=== PATIENT | male | born 1945 | race Caucasian/White ===

== ENCOUNTER → 2017-10-11 07:50 | Outpatient (CLI) | payer MEDICARE, OTHER, SELFPAY ==
--- NOTE | 2017-10-11 09:22 | P.PCN_ITS ---
Cardiac Stress Test Report Referral & Results Date Patient Seen: 10/11/17 Time Patient Seen: 09:20 Requesting provider: Shubham Bishop Indication: Chest pain Rest ECG: Unremarkable Procedure Note: Today following both written and verbal informed consent the patient was exercised according to a standard Kuldeep protocol patient went for a total of 5:15 minutes achieving a maximum heart rate of 158 maximum systolic blood pressure of 204. This is approximately 7.0 METS. Exercise was terminated at this point because of heart rate and blood pressure targets having been met. Patient was also given Cardiolite through a previously started Hep-Lock IV by the nuclear plant instrument technician approximately 1 minute prior to the cessation of exercise. Impression: There are no clear ST-T segment changes with activity. Occasional PVC and PAC Functional aerobic impairment rated 20% on the sedentary scale Late recovery at 3+ minutes patient did developed nonspecific ST-T segment changes in the lateral leads without symptoms Await perfusion imaging for full details but no clear evidence of ischemia with limited exercise capacity as above. Please note: Actual ECG tracings can be found in the PACS system.
--- NOTE | 2017-10-12 16:20 | DI.NM.S_ITS ---
DATE OF SERVICE: 10/11/2017 PROCEDURE: Exercise perfusion study. INDICATIONS: Chest pain with underlying hypertension, gout, and family history of coronary artery disease. RADIOPHARMACEUTICAL: 25.1 mCi of technetium-99m Myoview IV was injected at stress, and 26.0 mCi of technetium-99m Myoview IV was injected at rest. CARDIAC STRESS: Patient underwent exercise Myoview perfusion study under the supervision of an attending staff. The patient walked on Kuldeep protocol for 5 minutes 15 seconds and achieved 107% of target heart rate. Initial blood pressure 150/94. Peak blood pressure 204/88. The patient achieved 107% of target heart rate. Baseline EKG revealed sinus rhythm. During stress, the patient had 0.5 mm to [address] depression in lead V4 to V6. Nonspecific T-wave changes seen as well. No significant sustained arrhythmias seen. Occasional PVCs. No obvious chest pain. RAW DATA: There was increased subdiaphragmatic activity. The patient's weight is 270 pounds. GATED STUDY: Resting LV ejection fraction 61% and stress LV ejection fraction 71%. I don't see any obvious wall motion abnormalities. Resting end-diastolic volume 129 mL. No transient ischemic dilatation. TID ratio 0.80, which is within normal limits. Lung/heart ratio is 0.26, which is within normal limits. MYOCARDIAL PERFUSION SCAN: Stress supine, resting supine, and stress prone images were compared to each other. Stress and resting supine images revealed small- to moderate-sized mildly decreased perfusion of inferior wall and inferoapex which resolved during prone images, suggestive of diaphragmatic tissue attenuation artifact. CONCLUSION: I would call this study likely a normal myocardial perfusion study with evidence of diaphragmatic tissue attenuation artifact which resolved during prone images. There was a hypertensive blood pressure response. The patient achieved 7 METs of workload. Functional aerobic impairment positive-20% on sedentary scale. Overall, LV function is preserved. As far as perfusion scan is concerned, this is a low risk myocardial perfusion scan. Clinical correlation is recommended. Brandon Ramirez - SHWETA/glo/tyler doc#: [id number]/job#: [id number] dd: 10/12/2017 13:05:00 dt: 10/12/2017 14:45:00 DICTATING MD/COPIES TO: Maxx Bemrudez MD COPIES MNE: DANTE
== END ==
PROVIDERS: Family Provider Family Medicine; PCP Family Medicine; Visit Provider Family Medicine
DX: R07.9 Chest pain, unspecified (principal); I10 Essential (primary) hypertension
CPT/HCPCS: 78452; 93016; 93017; 93018; A9502

== ENCOUNTER → 2020-06-01 13:14 | Outpatient (CLI) | payer MEDICARE, OTHER, SELFPAY ==
[2020-06-01 16:22] LABS: COVID19 -Nasal RAPID Negative (Negative)
== END ==
PROVIDERS: Visit Provider Physician Assistant
DX: Z01.812 Encounter for preprocedural laboratory examination (principal); Z20.822 Contact with and (suspected) exposure to COVID-19
CPT/HCPCS: 87635; C9803

== ENCOUNTER → 2020-06-03 10:16 | Outpatient (CLI) | payer MEDICARE, OTHER, SELFPAY ==
--- NOTE | 2020-06-03 | DI.NM.S_ITS ---
PROCEDURE: NM DAVID PERF SPECT REST & STR Rest and exercise myocardial perfusion SPECT with gated imaging and ejection fraction RADIOPHARMACEUTICAL: 24.1 mCi Tc-99m sestamibi IV at rest and 27.5 mCi Tc-99m sestamibi IV at peak exercise. A two day-protocol was performed. INDICATIONS: Chest pain, unspecified TECHNIQUE: Radiopharmaceutical was injected at peak stress test, and also at rest. SPECT images were obtained. SPECT myocardial perfusion images were displayed in short axis, horizontal long axis, and vertical long axis views. Gated images were reviewed using [employer] software. COMPARISON: None. CARDIAC STRESS: A standard Kuldeep treadmill exercise tolerance test was performed by the patient under the supervision of an attending staff. The patient exercised for 4 minutes and 49 seconds; functional aerobic impairment (ROLAND) is +25%. Hemodynamic data: There is normal heart rate response to exercise stress. Mildly hypertensive response to exercise (resting BP 142/82mmHg, max BP 220/100mmHg). Patient achieved 93% of maximum predicted heart rate at peak exercise. Symptoms: Patient denied chest pain during exercise. EKG: No diagnostic EKG changes of ischemia; occasional PACs present. FINDINGS: Raw data: There is good myocardial labeling by radiotracer. No significant motion artifacts. Ulqi-lx-bhmgw ratio is 0.40 (normal is less than 0.38 for sestamibi tracer, and less than 0.50 for thallium tracer). Left ventricle function: Gated images demonstrate normal left ventricle wall thickening. No segmental wall motion abnormality. No transient ischemic dilation; TID is 0.83 (normal less than 1.3). The left ventricle resting end-diastolic volume is 120 mL. Left ventricle stress ejection fraction is 66%; normal values are above 45%. Myocardial perfusion: There is a moderately intense fixed defect in the inferior wall that improves significantly with prone imaging, suggesting diaphragmatic attenuation artifact but old non-transmural infarct can not be definitively excluded. IMPRESSION: Low risk, probably normal treadmill nuclear stress test 1) No perfusion evidence of ischemia. There is a moderately intense fixed defect in the inferior wall that improves significantly with prone imaging, suggesting diaphragmatic attenuation artifact but old non-transmural infarct can not be definitively excluded. 2) Normal left ventricular size, wall motion, and systolic function (EF post stress 66%). 3) No ECG evidence of ischemia. 4) No angina during the study. 5) Reduced exercise tolerance (7.0 METs, ROLAND +25%). Target heart rate achieved. 6) Mildly hypertensive response to exercise (resting BP 142/82mmHg, max BP 220/100mmHg). 7) Compared to the nuclear stress test done 10/11/2017, the inferior wall defect doesn't complete resolve with prone imaging on the current study. Dictated by: Brit Ocampo MD on 06/04/2020 at 12:58 Approved by: Brit Ocampo MD on 06/04/2020 at 13:03
== END ==
PROVIDERS: PCP Internal Medicine; Referring Provider Internal Medicine Cardiovascular Disease; Visit Provider Internal Medicine Cardiovascular Disease
DX: R07.89 Other chest pain (principal); R06.02 Shortness of breath
CPT/HCPCS: 78452; 93017; A9502

== ENCOUNTER 2020-08-20 11:45 | Emergency (ER) | payer MEDICARE, OTHER, SELFPAY ==
[2020-08-20] VITALS (14 sets, daily range): BP systolic 117–151; BP diastolic 73–96; PULSE 60–116; RESP 12–34; TEMP 36.6; O2SAT 97–100; BMI 32.8
--- NOTE | 2020-08-20 12:13 | DI.RAD.S_ITS ---
PROCEDURE: XR CHEST 1V INDICATIONS: chest pain TECHNIQUE: One view of the chest was acquired. COMPARISON: [facility], , CHEST 2 VIEW, 03/18/2017, 12:18. FINDINGS: Surgical changes and devices: None. Lungs and pleura: Lungs are clear. No pleural effusions or pneumothorax. Mediastinum: Mediastinal contours appear normal. Heart size is normal. Bones and chest wall: No suspicious bony lesions. Overlying soft tissues appear unremarkable. IMPRESSION: No evidence acute pulmonary process. Dictated by: Aniket Vergara M.D. on 08/20/2020 at 12:40 Approved by: Aniket Vergara M.D. on 08/20/2020 at 12:44
[2020-08-20 12:22] LABS: Add Manual Diff / Slide Review NO; Basophils Absolute Auto 100 /uL (0-100); Basophils Percent Auto 1.4 % (0-2); Eosinophils Absolute Auto 200 /uL (0-450); Eosinophils Percent Auto 3.7 % (2-4); Hematocrit 46.2 % (41-53); Hemoglobin 15.8 g/dL (13.5-17.5); Lymphocytes Absolute Auto 1600 /uL (1100-4500); Mean Corpuscular HGB Conc 34.1 % (30-36); Mean Corpuscular Hemoglobin 31.9 PG (26-34); Mean Corpuscular Volume 93.4 fL (80-100); Monocytes Absolute Auto 500 /uL (0-900); Neutrophils Absolute Auto 3900 /uL (1500-7000); Neutrophils Percent Auto 60.9 % (50-75); Platelet Count 234 X10^3/uL (150-400); Red Blood Cell Count 4.95 X10^6/uL (4.5-5.9); Red Cell Distribution Width 13.5 % (11.6-14.8); White Blood Cell Count 6.3 X10^3/uL (4.5-11.0)
[2020-08-20 12:26] LABS: PTT Partial Thromboplastin Tim 35 SECONDS (26.4-36.2)
[2020-08-20 12:27] LABS: Alanine Aminotransferase 45 IU/L (<50); Albumin 4.5 g/dL (3.5-5.0); Albumin Globulin Ratio 1.6 (1.0-2.8); Alkaline Phosphatase 93 U/L (38-126); Aspartate Aminotransferase 31 IU/L (17-59); BUN Creatinine Ratio 19.8 (6-22); Bilirubin Total 0.5 mg/dL (0.2-1.3); Blood Urea Nitrogen 16 mg/dL (9-20); Calcium 9.8 mg/dL (8.4-10.2); Carbon Dioxide 29 mmol/L (22-32); Chloride 104 mmol/L (98-107); Creatine Kinase 36 U/L (55-170); Estimated Glomerular Filt Rate > 60.0 mL/min (>60); Globulin 2.9 g/dL (1.7-4.1); Glucose 136 mg/dL (80-110); HEMOLYSIS < 15 (0-50); Lipase 62 U/L (23-300); Potassium 4.1 mmol/L (3.4-5.1); Sodium 141 mmol/L (137-145); Total Protein 7.4 g/dL (6.3-8.2)
[2020-08-20 12:38] LABS: Troponin I < 0.012 ng/mL (0.01-0.034)
--- NOTE | 2020-08-20 12:42 | ED.ARRPALP ---
HPI - Arrhythmia/Palpitations General Chief Complaint: Arrhythmia/Palpitations Stated Complaint: AFIB, REFERRED BY TEJAL Time Seen by Provider: 08/20/20 11:53 Source: patient Mode of arrival: Ambulatory Limitations: no limitations History of Present Illness HPI narrative: The patient is a 75-year-old male with history of diabetes hypertension paroxysmal atrial fibrillation presenting today with atrial fibrillation. He said it started at 2:00 a.m. this morning is woken from his sleepy felt fluttering in his chest. No dizziness lightheadedness chest pain or shortness of breath. This happened to him 2 other times once in 1989 and once in 1991 1 was related to thyroid medication the other 1 was related to of cold sherbert. complaint: heart racing and irregular heart beat Related Data Home Medications Medication Instructions Recorded Confirmed levothyroxine [Synthroid] 112 mcg PO QAM #0 09/07/17 Previous Rx's Medication Instructions Recorded atenolol 50 mg PO QDAY #90 tab 09/07/17 metoprolol succinate 100 mg PO QDAY #90 tab 09/07/17 varicella-zoster gE-AS01B (PF) 0.5 ml IM X1 #1 ea 09/07/17 [Shingrix (PF)] apixaban [Eliquis] 5 mg PO BID #60 tab 08/20/20 Allergies Allergy/AdvReac Type Severity Reaction Status Date / Time No Known Drug Allergies Allergy Verified 08/20/20 11:55 Review of Systems Review of Systems Narrative: GENERAL: Denies chills, fatigue, malaise, fever, sweats, travel HEENT: Denies sinus pain, ear pain, sore throat, difficulty swallowing, neck pain RESPIRATORY: Denies dyspnea, cough, wheezing, hemoptysis, sputum. CARDIOVASCULAR: See HPI GASTROINTESTINAL: Denies nausea, vomiting, abdominal pain, diarrhea, constipation, melena. : Denies dysuria, frequency, incontinence, hematuria, urinary retention, flank pain. MUSCULOSKELETAL: Denies weakness, joint pain, or bony pain SKIN: No rash, no erythema, no pruritus NEUROLOGIC: Denies weakness, dizziness, headache, numbness, change in speech, confusion PSYCHIATRIC: No concerning psychosocial issues. 12 point review of systems is negative except for those stated above and HPI Patient History Medical History Adenomatous polyp of colon Diabetes Family history of abdominal aortic aneurysm (AAA) (08/06/14) Gout Hyperlipidemia Hypertension Hypothyroidism Social History Smoking Status: Unknown if ever smoked Smoking Status: Unknown if ever smoked alcohol intake frequency: holidays/special occasions only Substance Use Type: does not use Exam Initial Vital Signs Initial Vital Signs: Vital Signs Temperature 97.9 F 08/20/20 11:48 Pulse Rate 99 H 08/20/20 11:48 Respiratory Rate 16 08/20/20 11:48 Blood Pressure 142/96 H 08/20/20 11:48 Pulse Oximetry 99 08/20/20 11:48 GENERAL: Alert pleasant 75-year-old male and in [no acute] distress. HEENT: Head atraumatic,EOMI, pupils reactive, face symmetric, [moist] mucous membranes CARDIOVASCULAR: Irregularly irregular RESPIRATORY: Breath sounds equal bilaterally, no wheezes rales or rhonchi. ABDOMEN: Soft, nontender. Normoactive bowel sounds all 4 quadrants. No guarding or rebound. EXTREMITIES: Normal range of motion, no clubbing or edema. Neurovascularly intact NEUROLOGICAL: Alert and oriented x4.Normal gait and speech. Cranial nerves II through XII grossly intact. SKIN: Warm, dry, no laceration, no petechiae, no rashes or lesions. Procedures Cardioversion Consent Signed: Yes Stability: Stable Number of attempts (shocks): 1 Joules used: 150 Cardiac rhythm post-cardioversion: Sinus rhythm Procedural Sedation Consent signed: Yes Time out performed: Yes Indication: cardioversion ASA Class: III Mallampati Airway Classification: Class II Preparation: supplemental O2 applied and suction/airway equipment at bedside Intraservice time/total sedation time (min): 12 ED Sedation Level: Moderate (Concious) Patient Tolerated Procedure: Well Complications: hypoventilation Interventions: Airway repositioned and Assist by BVM Course Orders Ordered: ED Orders 08/20/20 11:55 Complete Blood Count AUTO DIFF Stat Comprehensive Metabolic Panel Stat Lipase Stat Magnesium Stat Partial Thromboplastin Time Stat Prothrombin Time INR Stat Troponin & CK Cardiac Panel Stat 08/20/20 12:13 XR chest 1V Stat Discontinued Medications Propofol (Propofol 200 Mg/20 Ml Vial) 120 mg 1 mg/kg (120 mg) IV NOW ONE Stop: 08/20/20 12:58 Last Admin: 08/20/20 13:53 Dose: 100 mg Documented by: ANABEL Vital Signs Vital signs: Vital Signs - 8 hr 08/20/20 11:48 08/20/20 11:53 08/20/20 11:54 Temperature 97.9 F Pulse Rate 99 H 103 H 106 H Respiratory Rate 16 21 14 Blood Pressure 142/96 H 142/96 H Pulse Oximetry 99 100 100 08/20/20 12:00 08/20/20 12:30 08/20/20 13:00 Temperature Pulse Rate 111 H 110 H 116 H Respiratory Rate 12 13 16 Blood Pressure 141/94 H 142/73 H 135/80 Pulse Oximetry 99 99 99 08/20/20 13:30 08/20/20 13:45 08/20/20 13:52 Temperature Pulse Rate 111 H 92 H 111 H Respiratory Rate 16 18 Blood Pressure Pulse Oximetry 99 98 08/20/20 13:57 08/20/20 14:00 08/20/20 14:02 Temperature Pulse Rate 62 62 63 Respiratory Rate 21 34 H 20 Blood Pressure 151/73 H 134/78 133/79 Pulse Oximetry 100 98 98 08/20/20 14:08 08/20/20 14:21 Temperature Pulse Rate 61 60 Respiratory Rate 28 H 26 H Blood Pressure 131/80 117/73 Pulse Oximetry 97 98 MDM - Arrhythmia/Palpitations Lab Data Attestation: I reviewed the patient's lab results. Result diagrams: 08/20/20 11:55 08/20/20 11:55 Labs: Lab Results 08/20/20 08/20/20 08/20/20 Range/Units 11:55 11:55 11:55 WBC 6.3 (4.5-11.0) X10^3/uL RBC 4.95 (4.5-5.9) X10^6/uL Hgb 15.8 (13.5-17.5) g/dL Hct 46.2 (41-53) % MCV 93.4 (80-100) fL MCH 31.9 (26-34) PG MCHC 34.1 (30-36) % RDW 13.5 (11.6-14.8) % Plt Count 234 (150-400) X10^3/uL Neut % (Auto) 60.9 (50-75) % Lymph % (Auto) 26.0 (25-40) % Ventura % (Auto) 8.0 (3-14) % Eos % (Auto) 3.7 (2-4) % Baso % (Auto) 1.4 (0-2) % Neut # (Auto) 3900 (1762-4212) /uL Lymph # (Auto) 1600 (1466-3485) /uL Ventura # (Auto) 500 (0-900) /uL Eos # (Auto) 200 (0-450) /uL Baso # (Auto) 100 (0-100) /uL PT 11.0 (10.1-12.7) SECONDS INR 1.0 (0.9-1.3) APTT 35 (26.4-36.2) SECONDS Sodium 141 (137-145) mmol/L Potassium 4.1 (3.4-5.1) mmol/L Chloride 104 (98-107) mmol/L Carbon Dioxide 29 (22-32) mmol/L BUN 16 (9-20) mg/dL Creatinine 0.81 (0.66-1.25) mg/dL Estimated GFR > 60.0 (>60) mL/min BUN/Creatinine Ratio 19.8 (6-22) Glucose 136 H (80-110) mg/dL Calcium 9.8 (8.4-10.2) mg/dL Magnesium 2.0 (1.6-2.3) mg/dL Total Bilirubin 0.5 (0.2-1.3) mg/dL AST 31 (17-59) IU/L ALT 45 (<50) IU/L Alkaline Phosphatase 93 (38-126) U/L Total Creatine Kinase 36 L (55-170) U/L CK-MB (CK-2) TNP CK-MB (CK-2) Rel Index TNP Troponin I < 0.012 (0.01-0.034) ng/mL Total Protein 7.4 (6.3-8.2) g/dL Albumin 4.5 (3.5-5.0) g/dL Globulin 2.9 (1.7-4.1) g/dL Albumin/Globulin Ratio 1.6 (1.0-2.8) Lipase 62 (23-300) U/L Imaging Data Chest x-ray: Radiologist's Impresson: PROCEDURE: XR CHEST 1V INDICATIONS: chest pain TECHNIQUE: One view of the chest was acquired. COMPARISON: Merged With [facility], , CHEST 2 VIEW, 03/18/2017, 12:18. FINDINGS: Surgical changes and devices: None. Lungs and pleura: Lungs are clear. No pleural effusions or pneumothorax. Mediastinum: Mediastinal contours appear normal. Heart size is normal. Bones and chest wall: No suspicious bony lesions. Overlying soft tissues appear unremarkable. IMPRESSION: No evidence acute pulmonary process. Dictated by: Aniket Vergara M.D. on 08/20/2020 at 12:40 ECG Data Attestation: I personally reviewed and interpreted this ECG as follows: Prior ECG tracings: not available for review Interpretation: EKG 1. Atrial fibrillation whole rate [address] changes AFib EKG 2. Sinus bradycardia rate 58 p.r. interval 182 QRS 96 QTC4 00 MDM Narrative Medical decision making narrative: Patient tolerated procedure very well. Cardiology actually called prior to his rifle and recommended he be placed on Eliquis at discharge. I discussed with patient risks and benefits of Eliquis, at this time he is happy to take the prescription but is still hesitant to start the medication. Recommend he follow up with Dr. Bermudez Discharge Plan Departure Patient Disposition: Home Clinical Impression: Paroxysmal A-fib Instructions: DI for Atrial Fibrillation Activity Restrictions/Additional Instructions: *You have been diagnosed with paroxysmal atrial fibrillation *What to do: It is recommended that he follow up with Cardiology. Cardiology recommended that he start anticoagulation with Eliquis. Starting Eliquis can increase her risk of bleeding including GI bleeding and intracranial hemorrhage. *Continue to take medications as directed Eliquis 5 mg twice a day *Follow up with your primary care provider in 2-3 days *Return to ER if you should have increasing chest pain palpitations dizziness lightheadedness shortness of breath or any new, head injury, GI bleeding worsening or concerning symptoms Prescriptions: New Eliquis 5 mg tablet 5 mg PO BID Qty: 60 RF: 0 No Action levothyroxine [Synthroid] 112 MCG tablet 112 mcg PO QAM Qty: 0 RF: 0 metoprolol succinate 100 MG tablet extended release 24 hr 100 mg PO QDAY Qty: 90 RF: 4 atenolol 50 MG tablet 50 mg PO QDAY Qty: 90 RF: 3 varicella-zoster gE-AS01B (PF) [Shingrix (PF)] 50 MCG/0.5 ML suspension for reconstitution 0.5 ml IM X1 Qty: 1 RF: 0 Referrals: Rehana Conteh MD [Primary Care Provider] -
[2020-08-20] MEDS: propofoL 200 MG/20 ML VIAL 120 MG IV (13:53)
== END 2020-08-20 15:02 | disposition home or self-care (01) ==
PROVIDERS: Emergency Provider Emergency Medicine; PCP Internal Medicine
DX: I48.0 Paroxysmal atrial fibrillation (principal)
CPT/HCPCS: 36415; 71045; 80053; 82550; 83690; 83735; 84484; 85025; 85610; 85730; 92960; 93005; 93010; 99152; 99285; J2704

== ENCOUNTER 2020-10-06 01:15 | Emergency (ER) | payer MEDICARE, OTHER, SELFPAY ==
[2020-10-06] VITALS (46 sets, daily range): BP systolic 110–161; BP diastolic 58–90; PULSE 63–132; RESP 11–32; TEMP 36.6; O2SAT 93–99; BMI 37.3
--- NOTE | 2020-10-06 01:44 | ED_ITS ---
HPI - Arrhythmia/Palpitations General Chief Complaint: Arrhythmia/Palpitations Stated Complaint: states atrial fib, sent by md Time Seen by Provider: 10/06/20 01:25 Source: patient Mode of arrival: Ambulatory Limitations: no limitations History of Present Illness HPI narrative: The patient has paroxysmal atrial fib. He takes atenolol. He is not currently anticoagulated. He was seen here approximately a month ago and successfully cardioverted. Prior evaluation includes a cardiac stress pedis the past. The patient also underwent echo cardiogram, have no records but he describes the test as normal. He is under the care of Dr Bermudez. He was sitting quietly at home reading a book when he developed palpitations. He has no associated chest pain or dyspnea. Since the episode last month he has stopped all alcohol. He is prediabetic. Glucose monitor has been satisfactory. Blood pressure monitor has been satisfactory. He has hypothyroidism, his TSH is currently normal. Other than the current sequence of events, he has a remote history of a episode of AFib decades ago related to a Synthroid overdose.. Related Data Home Medications Medication Instructions Recorded Confirmed levothyroxine [Synthroid] 112 mcg PO QAM #0 09/07/17 Previous Rx's Medication Instructions Recorded atenolol 50 mg PO QDAY #90 tab 09/07/17 metoprolol succinate 100 mg PO QDAY #90 tab 09/07/17 varicella-zoster gE-AS01B (PF) 0.5 ml IM X1 #1 ea 09/07/17 [Shingrix (PF)] apixaban [Eliquis] 5 mg PO BID #60 tab 08/20/20 Allergies Allergy/AdvReac Type Severity Reaction Status Date / Time No Known Drug Allergies Allergy Verified 08/20/20 11:55 Review of Systems Constitutional Constitutional: Denies fever(s) Comments: No recent illness. ENT Ears, Nose, Mouth, and Throat: Denies dizziness Comments: No throat discomfort. Cardiovascular Cardiovascular: Denies chest pain, Reports rapid heart rate and Denies dyspnea Respiratory Respiratory: Denies dyspnea Gastrointestinal Comments: No abdominal discomfort. Musculoskeletal Comments: No edema. Neurologic Neurologic: Denies dizziness Patient History Medical History Adenomatous polyp of colon Diabetes Family history of abdominal aortic aneurysm (AAA) (08/06/14) Gout Hyperlipidemia Hypertension Hypothyroidism Social History Smoking Status: Unknown if ever smoked Smoking Status: Unknown if ever smoked alcohol intake frequency: 0-2 drinks per day Substance Use Type: does not use Exam Initial Vital Signs Initial Vital Signs: Vital Signs Temperature 97.8 F 10/06/20 01:20 Pulse Rate 129 H 10/06/20 01:20 Respiratory Rate 18 10/06/20 01:20 Blood Pressure 159/73 H 10/06/20 01:20 Pulse Oximetry 98 10/06/20 01:20 Const General: cooperative and well developed Nutritional Appearance: well nourished [facility] Head: normocephalic and atraumatic Nose: external nose normal Mouth: oral mucosae normal and moist mucous membranes Teeth and gingiva: dentition normal Throat: tonsils normal Neck Neck: No JVD Thyroid: thyroid normal Resp Auscultation: clear to auscultation bilaterally Cardio Rate: tachycardic (Irregular, irregular rhythm rate 120 to 140s.) Heart Sounds: S1 normal, S2 normal, no murmurs and no rubs GI Inspection: non-distended Palpation: soft, no hepatosplenomegaly and No tender Auscultation: normal bowel sounds Back/Spine/Pelvis Back: No CVA tenderness Skin General: no rashes or lesions noted Extrem General: no pedal edema Procedures Cardioversion Consent Signed: Yes Indication: AFib with RVR. Stability: Stable Cardiac rhythm post-cardioversion: Normal sinus rhythm Additional Comments: The patient is asymptomatic following cardioversion. It is noted that his sleep apnea. He required a brief of assistance with oxygen awaiting recovery from the propofol. Recovery was otherwise uneventful. Procedural Sedation Consent signed: Yes Time out performed: Yes Indication: cardioversion ASA Class: II Mallampati Airway Classification: Class II Preparation: cardiac surgeon applied, pulse oximeter, capnometry used, supplemental O2 applied and suction/airway equipment at bedside IV Propofol dose (mg): 120 Course Course Course Narrative: The patient underwent uneventful cardioversion from AFib to NSR. He currently takes beta-blockers. His pattern layout worker, Dr. Bermudez, contacted me prior to the patient's arrival. He suggested Eliquis and flecainide he had to the patient's treatment. The patient would consider Coumadin, not Eliquis. He intends to wait conversation with Dr. Bermudez before considering Flecainide. He is improved, and stable prior to discharge. Orders Ordered: ED Orders 10/06/20 01:27 EKG-12 Lead Routine 10/06/20 01:30 COVID19 -Nasal swab/Pre-Proc Stat 10/06/20 01:35 Basic Metabolic Panel Stat Complete Blood Count AUTO DIFF Stat Magnesium Stat Troponin & CK Cardiac Panel Stat 10/06/20 01:53 XR chest 1V Stat 10/06/20 04:17 EKG-12 Lead Stat Discontinued Medications Sodium Chloride (Normal Saline 0.9%) 1,000 mls @ 150 mls/hr IV CONT LEWIS Last Infusion: 10/06/20 05:48 Dose: 150 mls/hr Documented by: Infusion: 10/06/20 05:48 Dose: 150 mls/hr Documented by: Admin: 10/06/20 02:26 Dose: 150 mls/hr Documented by: CHAVA Sodium Chloride (Normal Saline 0.9%) 1,000 mls @ 150 mls/hr IV CONT LEWIS Last Admin: 10/06/20 05:48 Dose: Not Given Documented by: TRACEY Propofol (Propofol 200 Mg/20 Ml Vial) 200 mg IV NOW ONE Stop: 10/06/20 03:05 Last Admin: 10/06/20 04:17 Dose: 120 mg Documented by: TRACEY Vital Signs Vital signs: Vital Signs - 8 hr 10/06/20 01:20 10/06/20 01:26 10/06/20 01:29 Temperature 97.8 F Pulse Rate 129 H 114 H 125 H Respiratory Rate 18 17 Blood Pressure 159/73 H 159/73 H Blood Pressure [Right Arm] Pulse Oximetry 98 97 96 10/06/20 01:30 10/06/20 01:35 10/06/20 01:40 Temperature Pulse Rate 125 H 128 H 126 H Respiratory Rate 15 11 L 19 Blood Pressure 123/68 Blood Pressure [Right Arm] Pulse Oximetry 96 96 96 10/06/20 01:45 10/06/20 01:50 10/06/20 01:55 Temperature Pulse Rate 129 H 128 H 128 H Respiratory Rate 28 H 31 H 32 H Blood Pressure Blood Pressure [Right Arm] Pulse Oximetry 96 97 98 10/06/20 02:00 10/06/20 02:05 10/06/20 02:10 Temperature Pulse Rate 128 H 132 H 127 H Respiratory Rate 22 20 24 Blood Pressure 131/70 Blood Pressure [Right Arm] Pulse Oximetry 96 96 97 10/06/20 02:15 10/06/20 02:20 10/06/20 02:25 Temperature Pulse Rate 122 H 126 H 126 H Respiratory Rate 16 17 22 Blood Pressure Blood Pressure [Right Arm] Pulse Oximetry 95 95 93 10/06/20 02:30 10/06/20 02:35 10/06/20 02:40 Temperature Pulse Rate 125 H 125 H 121 H Respiratory Rate 15 20 16 Blood Pressure 142/71 H Blood Pressure [Right Arm] Pulse Oximetry 96 95 95 10/06/20 02:45 10/06/20 02:50 10/06/20 02:55 Temperature Pulse Rate 124 H 119 H 124 H Respiratory Rate 19 20 20 Blood Pressure Blood Pressure [Right Arm] Pulse Oximetry 94 94 95 10/06/20 03:00 10/06/20 03:05 10/06/20 03:10 Temperature Pulse Rate 118 H 124 H 113 H Respiratory Rate 21 18 20 Blood Pressure 125/67 Blood Pressure [Right Arm] Pulse Oximetry 93 94 94 10/06/20 03:15 10/06/20 03:20 10/06/20 03:25 Temperature Pulse Rate 122 H 122 H 121 H Respiratory Rate 26 H 21 15 Blood Pressure Blood Pressure [Right Arm] Pulse Oximetry 97 96 10/06/20 03:30 10/06/20 03:31 10/06/20 03:35 Temperature Pulse Rate 127 H 121 H 127 H Respiratory Rate 15 18 19 Blood Pressure 148/69 H Blood Pressure [Right Arm] Pulse Oximetry 10/06/20 03:40 10/06/20 03:45 10/06/20 03:50 Temperature Pulse Rate 123 H 114 H 121 H Respiratory Rate 14 17 11 L Blood Pressure Blood Pressure [Right Arm] Pulse Oximetry 10/06/20 03:55 10/06/20 04:00 10/06/20 04:04 Temperature Pulse Rate 114 H 115 H 74 Respiratory Rate 15 14 23 Blood Pressure 161/88 H Blood Pressure [Right Arm] 152/90 H Pulse Oximetry 97 99 10/06/20 04:05 10/06/20 04:10 10/06/20 04:15 Temperature Pulse Rate 118 H 74 73 Respiratory Rate 17 19 19 Blood Pressure 149/80 H 152/90 H 119/74 Blood Pressure [Right Arm] Pulse Oximetry 97 99 95 10/06/20 04:20 10/06/20 04:25 10/06/20 04:30 Temperature Pulse Rate 72 69 67 Respiratory Rate 16 18 Blood Pressure 120/79 112/60 110/58 L Blood Pressure [Right Arm] Pulse Oximetry 95 94 95 10/06/20 04:35 10/06/20 04:40 10/06/20 04:45 Temperature Pulse Rate 65 64 63 Respiratory Rate 17 17 17 Blood Pressure 114/60 114/62 112/59 L Blood Pressure [Right Arm] Pulse Oximetry 94 94 95 10/06/20 04:50 Temperature Pulse Rate 64 Respiratory Rate 18 Blood Pressure Blood Pressure [Right Arm] Pulse Oximetry 95 MDM - Arrhythmia/Palpitations Lab Data Result diagrams: 10/06/20 01:35 10/06/20 01:35 Labs: Lab Results 10/06/20 10/06/20 10/06/20 Range/Units 01:30 01:35 01:35 WBC 6.9 (4.5-11.0) X10^3/uL RBC 4.86 (4.5-5.9) X10^6/uL Hgb 15.1 (13.5-17.5) g/dL Hct 44.9 (41-53) % MCV 92.4 (80-100) fL MCH 31.0 (26-34) PG MCHC 33.5 (30-36) % RDW 13.4 (11.6-14.8) % Plt Count 225 (150-400) X10^3/uL Neut % (Auto) 59.8 (50-75) % Lymph % (Auto) 27.4 (25-40) % [place] % (Auto) 7.5 (3-14) % Eos % (Auto) 3.9 (2-4) % Baso % (Auto) 1.4 (0-2) % Neut # (Auto) 4100 (1600-3856) /uL Lymph # (Auto) 1900 (7794-9308) /uL [place] # (Auto) 500 (0-900) /uL Eos # (Auto) 300 (0-450) /uL Baso # (Auto) 100 (0-100) /uL Sodium 141 (137-145) mmol/L Potassium 3.8 (3.4-5.1) mmol/L Chloride 107 (98-107) mmol/L Carbon Dioxide 25 (22-32) mmol/L BUN 22 H (9-20) mg/dL Creatinine 0.85 (0.66-1.25) mg/dL Estimated GFR > 60.0 (>60) mL/min BUN/Creatinine Ratio 25.9 H (6-22) Glucose 157 H (80-110) mg/dL Calcium 9.4 (8.4-10.2) mg/dL Magnesium 2.0 (1.6-2.3) mg/dL Total Creatine Kinase 37 L (55-170) U/L CK-MB (CK-2) TNP CK-MB (CK-2) Rel Index TNP Troponin I < 0.012 (0.01-0.034) ng/mL SARS-CoV-2 (PCR) Negative (Negative) Imaging Data Chest x-ray: My Impression: Normal ECG Data Attestation: I personally reviewed and interpreted this ECG as follows: (AFib with RVR rate 126 beats per minute. Left axis deviation. Q-waves suggesting old inferior [place]. No acute ST T wave changes. EKG 2., status post cardioversion. Normal sinus rhythm with left axis deviation, no ectopy. No acute ST T wave changes.) Discharge Plan Departure Patient Disposition: Home Clinical Impression: Atrial fibrillation Qualifiers: Atrial fibrillation type: paroxysmal Qualified Code(s): I48.0 - Paroxysmal atrial fibrillation Instructions: DI for Atrial Fibrillation Activity Restrictions/Additional Instructions: Continue your current medications. Contact your pattern layout worker to discuss the use of Eliquis versus Coumadin, and discuss the use of Flecainide. Return to the ER as necessary. Prescriptions: No Action levothyroxine [Synthroid] 112 MCG tablet 112 mcg PO QAM Qty: 0 RF: 0 metoprolol succinate 100 MG tablet extended release 24 hr 100 mg PO QDAY Qty: 90 RF: 4 atenolol 50 MG tablet 50 mg PO QDAY Qty: 90 RF: 3 varicella-zoster gE-AS01B (PF) [Shingrix (PF)] 50 MCG/0.5 ML suspension for reconstitution 0.5 ml IM X1 Qty: 1 RF: 0 Eliquis 5 mg tablet 5 mg PO BID Qty: 60 RF: 0 Referrals: Rehana Conteh MD [Primary Care Provider] - Maxx Bermudez MD [Physician] -
[2020-10-06 01:53] LABS: COVID19 -Nasal RAPID Negative (Negative)
--- NOTE | 2020-10-06 01:53 | DI.RAD.S_ITS ---
PROCEDURE: XR CHEST 1V INDICATIONS: chest pain TECHNIQUE: One view of the chest was acquired. COMPARISON: [facility], CR, CHEST 2 VIEW, 03/18/2017, 12:18. [facility], CR, XR CHEST 1 VIEW, 05/13/2020, 11:15. [facility], CR, XR CHEST 1V, 08/20/2020, 12:19. FINDINGS: Surgical changes and devices: None. Lungs and pleura: Lungs are clear. No pleural effusions or pneumothorax. Mediastinum: Mediastinal contours appear normal. Heart size is normal. Atherosclerotic calcification of the aortic arch is noted. Bones and chest wall: No suspicious bony lesions. Age-appropriate bony degenerative changes are seen. Overlying soft tissues appear unremarkable. IMPRESSION: Portable chest study within normal limits for age. Note: No significant discrepancy from the preliminary report. Dictated by: Franki Mckeon M.D. on 10/06/2020 at 8:27 Approved by: Franki Mckeon M.D. on 10/06/2020 at 8:27
[2020-10-06 02:05] LABS: Add Manual Diff / Slide Review NO; Basophils Absolute Auto 100 /uL (0-100); Basophils Percent Auto 1.4 % (0-2); Eosinophils Absolute Auto 300 /uL (0-450); Eosinophils Percent Auto 3.9 % (2-4); Hematocrit 44.9 % (41-53); Hemoglobin 15.1 g/dL (13.5-17.5); Lymphocytes Absolute Auto 1900 /uL (1100-4500); Lymphocytes Percent Auto 27.4 % (25-40); Mean Corpuscular HGB Conc 33.5 % (30-36); Mean Corpuscular Volume 92.4 fL (80-100); Monocytes Absolute Auto 500 /uL (0-900); Monocytes Percent Auto 7.5 % (3-14); Neutrophils Absolute Auto 4100 /uL (1500-7000); Neutrophils Percent Auto 59.8 % (50-75); Platelet Count 225 X10^3/uL (150-400); Red Blood Cell Count 4.86 X10^6/uL (4.5-5.9); Red Cell Distribution Width 13.4 % (11.6-14.8); White Blood Cell Count 6.9 X10^3/uL (4.5-11.0)
[2020-10-06 02:10] LABS: BUN Creatinine Ratio 25.9 (6-22); Blood Urea Nitrogen 22 mg/dL (9-20); Calcium 9.4 mg/dL (8.4-10.2); Carbon Dioxide 25 mmol/L (22-32); Chloride 107 mmol/L (98-107); Creatine Kinase 37 U/L (55-170); Estimated Glomerular Filt Rate > 60.0 mL/min (>60); Glucose 157 mg/dL (80-110); HEMOLYSIS 21 (0-50); Potassium 3.8 mmol/L (3.4-5.1); Sodium 141 mmol/L (137-145)
[2020-10-06 02:21] LABS: Troponin I < 0.012 ng/mL (0.01-0.034)
[2020-10-06] MEDS: SODIUM CHLORIDE 0.9% 1,000 ML 150 ML IV (02:26)
[2020-10-06] MEDS: propofoL 200 MG/20 ML VIAL IV (04:17)
--- NOTE | 2020-10-06 04:18 | PC.NURSE ---
Pt is now alert and conversant. Dr Iniguez at bedside discussing plan of care. Pt in sinus rhythm after cardioversion.
== END 2020-10-06 05:45 | disposition home or self-care (01) ==
PROVIDERS: Emergency Provider Emergency Medicine; PCP Internal Medicine
DX: I48.0 Paroxysmal atrial fibrillation (principal); Z20.822 Contact with and (suspected) exposure to COVID-19
CPT/HCPCS: 36415; 71045; 80048; 82550; 83735; 84484; 85025; 87635; 92960; 93005; 93010; 96360; 96361; 99285; 99291; C9803; J2704

== ENCOUNTER 2022-03-06 08:38 | Emergency (ER) | payer MEDICARE, OTHER, SELFPAY ==
[2022-03-06] VITALS (10 sets, daily range): BP systolic 141–192; BP diastolic 80–108; PULSE 70–88; RESP 18; TEMP 36.8; O2SAT 97–99; BMI 34.8
--- NOTE | 2022-03-06 09:04 | ED_ITS ---
HPI - Back Pain/Injury General Chief Complaint: Back Pain/Injury Stated Complaint: excruciating right flank pain Time Seen by Provider: 03/06/22 08:50 Source: patient Mode of arrival: Ambulatory History of Present Illness HPI Narrative: 76-year-old male who is here for evaluation of right-sided flank pain. He states that approximately 1 week ago he had a fairly sudden onset of right-sided flank discomfort that got worse with touching his lower ribs on the right. There was no specific trauma. The pain has been consistent for the past week. There has been no rash over the area. This morning the discomfort seems to worsen and now encompasses his right side of his abdomen. He denies any urinary symptoms. No change in bowel habits. No nausea or vomiting. No fevers. Has never had a kidney stone. Has never had gallbladder issues. No prior abdominal surgeries. Related Data Home Medications Medication Instructions Recorded Confirmed levothyroxine 112 mcg tablet 112 mcg PO QAM ##0 09/07/17 (Synthroid) Previous Rx's Medication Instructions Recorded atenolol 50 mg tablet 50 mg PO QDAY #90 tabs 09/07/17 metoprolol succinate 100 mg 100 mg PO QDAY #90 tabs 09/07/17 tablet,extended release 24 hr varicella-zoster glycoE vacc-AS01B 0.5 ml IM X1 #1 ea 09/07/17 adj(PF) 50 mcg/0.5 mL IM susp, kit (Shingrix (PF)) apixaban 5 mg tablet (Eliquis) 5 mg PO BID #60 tabs 08/20/20 Allergies Allergy/AdvReac Type Severity Reaction Status Date / Time No Known Drug Allergies Allergy Verified 08/20/20 11:55 Review of Systems Constitutional Constitutional: Reports system reviewed and no additional complaints, except as documented Gastrointestinal Gastrointestinal: Reports system reviewed and no additional complaints, except as documented Genitourinary Genitourinary: Reports system reviewed and no additional complaints, except as documented Musculoskeletal Musculoskeletal: Reports system reviewed and no additional complaints, except as documented Integumentary/Breasts Skin/Breast: Reports system reviewed and no additional complaints, except as documented Hematologic/Lymphatic On Anticoagulants: No Patient History Medical History Adenomatous polyp of colon Diabetes Family history of abdominal aortic aneurysm (AAA) (08/06/14) Gout Hyperlipidemia Hypertension Hypothyroidism Social History Smoking Status: Unknown if ever smoked Smoking Status: Unknown if ever smoked alcohol intake frequency: 0-2 drinks per day Substance Use Type: does not use Exam Initial Vital Signs Initial Vital Signs: Vital Signs Temperature 98.3 F 03/06/22 08:40 Pulse Rate 88 03/06/22 08:40 Respiratory Rate 18 03/06/22 08:40 Blood Pressure 190/88 H 03/06/22 08:40 Pulse Oximetry 97 03/06/22 08:40 Oxygen Delivery Method 03/06/22 08:40 Resp Effort & Inspection: normal respiratory effort Auscultation: clear to auscultation bilaterally Cardio Rate: regular rate Rhythm: regular rhythm GI Inspection: normal to inspection Palpation: soft, No firm, No guarding and No mass Back/Spine/Pelvis Other: Some discomfort over the right CVA in the right lower ribs. No crepitus. Skin General: no rashes or lesions noted Neuro General: patient alert, patient awake and moves all extremities Extrem General: normal to inspection and capillary refill normal Psych Appearance: grossly normal and well kempt Course Orders Ordered: ED Orders 03/06/22 08:49 Complete Blood Count AUTO DIFF Stat Comprehensive Metabolic Panel Stat Lactate (Lactic Acid) Stat Lipase Stat 03/06/22 09:05 CT abdomen pelvis w con Stat 03/06/22 11:14 US abdomen limited Stat Discontinued Medications Sodium Chloride (Normal Saline 0.9%) 1,000 mls @ 1,000 mls/hr IV BOLUS ONE Stop: 03/06/22 10:04 Last Infusion: 03/06/22 11:00 Dose: 0 mls/hr Documented By: Admin: 03/06/22 09:19 Dose: 1,000 mls/hr Documented By: CADENCE Vital Signs Vital signs: Vital Signs - 8 hr 03/06/22 08:40 03/06/22 09:00 03/06/22 09:00 Temperature 98.3 F Pulse Rate 88 86 Respiratory Rate 18 Blood Pressure 190/88 H 192/108 H Pulse Oximetry 97 98 Oxygen Delivery Method Room Air 03/06/22 09:30 03/06/22 09:30 03/06/22 10:00 Temperature Pulse Rate 78 78 Respiratory Rate Blood Pressure 156/85 H Pulse Oximetry 97 97 Oxygen Delivery Method 03/06/22 10:01 03/06/22 10:01 03/06/22 10:30 Temperature Pulse Rate 78 Respiratory Rate Blood Pressure 187/90 H 167/93 H Pulse Oximetry 97 Oxygen Delivery Method 03/06/22 10:30 03/06/22 11:00 03/06/22 11:00 Temperature Pulse Rate 73 73 Respiratory Rate Blood Pressure 159/90 H Pulse Oximetry 98 97 Oxygen Delivery Method 03/06/22 11:30 03/06/22 11:30 03/06/22 11:53 Temperature Pulse Rate 70 71 Respiratory Rate Blood Pressure 150/80 H Pulse Oximetry 97 99 Oxygen Delivery Method Room Air 03/06/22 12:00 Temperature Pulse Rate Respiratory Rate Blood Pressure 141/86 H Pulse Oximetry Oxygen Delivery Method MDM - Back Pain/Injury Lab Data Attestation: I reviewed the patient's lab results. Result diagrams: 03/06/22 08:49 03/06/22 08:49 Labs: Lab Results 03/06/22 03/06/22 03/06/22 Range/Units 08:49 08:49 08:49 WBC 6.4 (4.5-11.0) X10^3/uL RBC 5.19 (4.5-5.9) X10^6/uL Hgb 15.6 (13.5-17.5) g/dL Hct 46.8 (41-53) % MCV 90.1 (80-100) fL MCH 30.1 (26-34) PG MCHC 33.4 (30-36) % RDW 13.8 (11.6-14.8) % Plt Count 207 (150-400) X10^3/uL Neut % (Auto) 60.7 (50-75) % Lymph % (Auto) 26.6 (25-40) % [place] % (Auto) 6.7 (3-14) % Eos % (Auto) 4.6 H (2-4) % Baso % (Auto) 1.4 (0-2) % Neut # (Auto) 3900 (6177-0849) /uL Lymph # (Auto) 1700 (0594-4877) /uL [place] # (Auto) 400 (0-900) /uL Eos # (Auto) 300 (0-450) /uL Baso # (Auto) 100 (0-100) /uL Sodium 141 (137-145) mmol/L Potassium 4.2 (3.4-5.1) mmol/L Chloride 104 (98-107) mmol/L Carbon Dioxide 28 (22-32) mmol/L BUN 13 (9-20) mg/dL Creatinine 0.73 (0.66-1.25) mg/dL Estimated GFR > 60 (>60) mL/min BUN/Creatinine Ratio 17.8 (6-22) Glucose 146 H (80-110) mg/dL Lactate 2.0 (0.7-2.1) mmol/L Calcium 9.4 (8.4-10.2) mg/dL Total Bilirubin 0.6 (0.2-1.3) mg/dL AST 26 (17-59) IU/L ALT 31 (<50) IU/L Alkaline Phosphatase 124 (38-126) U/L Total Protein 7.7 (6.3-8.2) g/dL Albumin 4.5 (3.5-5.0) g/dL Globulin 3.2 (1.7-4.1) g/dL Albumin/Globulin Ratio 1.4 (1.0-2.8) Lipase 97 (23-300) U/L Urine Dip Bedside Urine Glucose Negative Bedside Urine Bilirubin - Negative Bedside Urine Ketone - Negative Urine Specific [place] 1.010 Bedside Urine Occult Blood - Negative Bedside Urine pH 7.0 Bedside Urine Protein - Negative Bedside Urine Urobilinogen - Negative Bedside Urine Nitrite - Negative Bedside Urine Leukocytes - Negative Esterase Imaging Data CT scan - abdomen/pelvis: Radiologist's Impression: [address] [address] [address] Scan Report Signed Patient: Brandon Ramirez MR#: [id number] : 1945 Acct:[id number] Age/Sex: 76 / M Date of Service: 03/06/22 Loc: ED Accession Number: [id number] ?? Procedure: CT abdomen pelvis w con Ordering Provider: Lokesh Leonard D.O. PROCEDURE:? CT ABDOMEN PELVIS W CON ? INDICATIONS:? Right-sided flank pain ? TECHNIQUE:? After the administration of oral and IV contrast, axial sections were acquired from the lung bases to the pubic symphysis.? Coronal and sagittal reformats were performed.? For radiation dose reduction, the following was used:? automated exposure control, adjustment of mA and/or kV according to patient size. ? COMPARISON:? None. ? FINDINGS:? Image quality:? Excellent.? ? Lung bases:? Unremarkable. Small hiatal hernia. Heart:? No significant findings. ? ? ABDOMEN: Liver:? Normal size.? Mild hepatic steatosis.? ? Gallbladder:? Unremarkable.? ? Biliary ducts:? Unremarkable.? ? Pancreas:? Unremarkable.? ? Spleen:? Unremarkable.? ? Adrenal Glands:? Unremarkable.? ? Kidneys and Ureters:? Normal size and symmetrical enhancement.? Mild bilateral perinephric stranding.? A couple of 1 cm cortical cyst in the superior pole of the left kidney.? ? ? Stomach and Bowel:? Stomach, small bowel loops, and colon are normal in size.? Appendix is not identified.? No secondary signs for acute appendicitis.? Moderate stool in colon. Peritoneum:? No abnormal intraperitoneal fluid.? No free air.? ? Ventral Wall: ? There is a small fat containing umbilical hernia.? Abdominal Nodes:? No retroperitoneal or mesenteric adenopathy by size criteria.? Vessels:? Aorta and inferior vena cava are normal in size.? ? PELVIS: Pelvic Organs:? Unremarkable.? Prostate is enlarged. ? Bladder:? Unremarkable.? ? Pelvic Nodes: No enlarged lymph nodes.? Miscellaneous:? There is a small fat containing right inguinal hernia. ? ? ? Bones:? Grade 1 anterolisthesis of L4 on L5.? Moderate degenerative disc and facet disease in the lower thoracic and lumbar spine.? IMPRESSION:? ? 1. No acute abnormalities in abdomen or pelvis. 2. Mild hepatic steatosis. 3. Small hiatal hernia. 4. A small fat containing umbilical hernia. 5. Moderate amount of stool in colon.? ? ? Dictated by: Alyce Shaver M.D. on 03/06/2022 at 10:33 ? ? Approved by: Alyce Shaver M.D. on 03/06/2022 at 10:40? US - abdomen: Radiologist's Impression: [address] [address] Ultrasound Report Signed Patient: Brandon Ramirez MR#: [id number] : 1945 Acct:[id number] Age/Sex: 76 / M Date of Service: 03/06/22 Loc: ED Accession Number: [id number] ?? Procedure: US abdomen limited Ordering Provider: Lokesh Leonard D.O. PROCEDURE:? US ABDOMEN LIMITED ? INDICATIONS:? RUQ pain eval for GB pathology ? TECHNIQUE:? Real-time scanning was performed of the abdominal and retroperitoneal organs, with image documentation.? ? COMPARISON:? [facility], CT, CT ABDOMEN PELVIS W CON, 03/06/2022, 9:56. ? FINDINGS:? ? Liver:? Liver is normal in size and demonstrates increased echotexture.? Gallbladder:? No gallstones. No gallbladder wall thickening, pericholecystic fluid or sonographic Guzman's sign.? Biliary ducts:? Intrahepatic bile ducts are non-dilated.? Extrahepatic bile duct caliber measures 4.7 mm.? Normal is 6-7 mm or less in diameter, or 10 mm or less post-cholecystectomy.? Pancreas:? Obscured.? Miscellaneous:? No free abdominal fluid.? ? ? IMPRESSION:? ? 1. Normal ultrasound appearance of gallbladder.? No gallstones or findings to suggest acute cholecystitis. 2.? Diffusely increased hepatic echotexture. This finding is most likely secondary to hepatic fatty infiltration although other hepatocellular disease may have a similar appearance. Recommend clinical correlation. 3. Pancreas obscured by overlying bowel gas. ? ? ? Dictated by: Alyce Shaver M.D. on 03/06/2022 at 12:24 ? ? Approved by: Alyce Shaver M.D. on 03/06/2022 at 12:26? MDM Narrative Medical decision making narrative: Labs CT scan ultrasound urinalysis are all unremarkable. Unfortunately does not give a exact diagnosis but is very reassuring. There is no skin changes over the area concerning for zoster. Patient states that his symptoms have actually improved since being here in the ER. No medications administered. Will discharge patient home with strict return precautions. He expressed understanding and agreement. Discharge Plan Departure Patient Disposition: Home Clinical Impression: Acute right flank pain Instructions: DI for Flank Pain Activity Restrictions/Additional Instructions: Your workup here in the emergency department is very reassuring. The CT scans and ultrasounds and labs are all unremarkable. Recommend that you continue to take all of her medications as directed. Return to the emergency department for any new or worsening symptoms. Prescriptions: No Action levothyroxine [Synthroid] 112 MCG tablet 112 mcg PO QAM Qty: 0 metoprolol succinate 100 MG tablet extended release 24 hr 100 mg PO QDAY Qty: 90 4RF atenolol 50 MG tablet 50 mg PO QDAY Qty: 90 3RF varicella-zoster gE-AS01B (PF) [Shingrix (PF)] 50 MCG/0.5 ML suspension for reconstitution 0.5 ml IM X1 Qty: 1 0RF Eliquis 5 mg tablet 5 mg PO BID Qty: 60 0RF Referrals: Rehana Conteh MD [Primary Care Provider] -
--- NOTE | 2022-03-06 09:05 | DI.CT.S_ITS ---
PROCEDURE: CT ABDOMEN PELVIS W CON INDICATIONS: Right-sided flank pain TECHNIQUE: After the administration of oral and IV contrast, axial sections were acquired from the lung bases to the pubic symphysis. Coronal and sagittal reformats were performed. For radiation dose reduction, the following was used: automated exposure control, adjustment of mA and/or kV according to patient size. COMPARISON: None. FINDINGS: Image quality: Excellent. Lung bases: Unremarkable. Small hiatal hernia. Heart: No significant findings. ABDOMEN: Liver: Normal size. Mild hepatic steatosis. Gallbladder: Unremarkable. Biliary ducts: Unremarkable. Pancreas: Unremarkable. Spleen: Unremarkable. Adrenal Glands: Unremarkable. Kidneys and Ureters: Normal size and symmetrical enhancement. Mild bilateral perinephric stranding. A couple of 1 cm cortical cyst in the superior pole of the left kidney. Stomach and Bowel: Stomach, small bowel loops, and colon are normal in size. Appendix is not identified. No secondary signs for acute appendicitis. Moderate stool in colon. Peritoneum: No abnormal intraperitoneal fluid. No free air. Ventral Wall: There is a small fat containing umbilical hernia. Abdominal Nodes: No retroperitoneal or mesenteric adenopathy by size criteria. Vessels: Aorta and inferior vena cava are normal in size. PELVIS: Pelvic Organs: Unremarkable. Prostate is enlarged. Bladder: Unremarkable. Pelvic Nodes: No enlarged lymph nodes. Miscellaneous: There is a small fat containing right inguinal hernia. Bones: Grade 1 anterolisthesis of L4 on L5. Moderate degenerative disc and facet disease in the lower thoracic and lumbar spine. IMPRESSION: 1. No acute abnormalities in abdomen or pelvis. 2. Mild hepatic steatosis. 3. Small hiatal hernia. 4. A small fat containing umbilical hernia. 5. Moderate amount of stool in colon. Dictated by: Alyce Shaver M.D. on 03/06/2022 at 10:33 Approved by: Alyce Shaver M.D. on 03/06/2022 at 10:40
[2022-03-06 09:16] LABS: Add Manual Diff / Slide Review NO; Basophils Absolute Auto 100 /uL (0-100); Basophils Percent Auto 1.4 % (0-2); Eosinophils Absolute Auto 300 /uL (0-450); Eosinophils Percent Auto 4.6 % (2-4); Hematocrit 46.8 % (41-53); Hemoglobin 15.6 g/dL (13.5-17.5); Lymphocytes Absolute Auto 1700 /uL (1100-4500); Lymphocytes Percent Auto 26.6 % (25-40); Mean Corpuscular HGB Conc 33.4 % (30-36); Mean Corpuscular Hemoglobin 30.1 PG (26-34); Mean Corpuscular Volume 90.1 fL (80-100); Monocytes Absolute Auto 400 /uL (0-900); Monocytes Percent Auto 6.7 % (3-14); Neutrophils Absolute Auto 3900 /uL (1500-7000); Neutrophils Percent Auto 60.7 % (50-75); Platelet Count 207 X10^3/uL (150-400); Red Blood Cell Count 5.19 X10^6/uL (4.5-5.9); Red Cell Distribution Width 13.8 % (11.6-14.8); White Blood Cell Count 6.4 X10^3/uL (4.5-11.0)
[2022-03-06] MEDS: SODIUM CHLORIDE 0.9% 1,000 ML 1000 ML IV (09:19)
[2022-03-06 09:20] LABS: Alanine Aminotransferase 31 IU/L (<50); Albumin 4.5 g/dL (3.5-5.0); Albumin Globulin Ratio 1.4 (1.0-2.8); Alkaline Phosphatase 124 U/L (38-126); Aspartate Aminotransferase 26 IU/L (17-59); BUN Creatinine Ratio 17.8 (6-22); Bilirubin Total 0.6 mg/dL (0.2-1.3); Blood Urea Nitrogen 13 mg/dL (9-20); Calcium 9.4 mg/dL (8.4-10.2); Carbon Dioxide 28 mmol/L (22-32); Chloride 104 mmol/L (98-107); Estimated Glomerular Filt Rate > 60 mL/min (>60); Globulin 3.2 g/dL (1.7-4.1); Glucose 146 mg/dL (80-110); HEMOLYSIS < 15 (0-50); Lipase 97 U/L (23-300); Potassium 4.2 mmol/L (3.4-5.1); Sodium 141 mmol/L (137-145); Total Protein 7.7 g/dL (6.3-8.2)
--- NOTE | 2022-03-06 11:14 | DI.US.S_ITS ---
PROCEDURE: US ABDOMEN LIMITED INDICATIONS: RUQ pain eval for GB pathology TECHNIQUE: Real-time scanning was performed of the abdominal and retroperitoneal organs, with image documentation. COMPARISON: [facility], CT, CT ABDOMEN PELVIS W CON, 03/06/2022, 9:56. FINDINGS: Liver: Liver is normal in size and demonstrates increased echotexture. Gallbladder: No gallstones. No gallbladder wall thickening, pericholecystic fluid or sonographic Guzman's sign. Biliary ducts: Intrahepatic bile ducts are non-dilated. Extrahepatic bile duct caliber measures 4.7 mm. Normal is 6-7 mm or less in diameter, or 10 mm or less post-cholecystectomy. Pancreas: Obscured. Miscellaneous: No free abdominal fluid. IMPRESSION: 1. Normal ultrasound appearance of gallbladder. No gallstones or findings to suggest acute cholecystitis. 2. Diffusely increased hepatic echotexture. This finding is most likely secondary to hepatic fatty infiltration although other hepatocellular disease may have a similar appearance. Recommend clinical correlation. 3. Pancreas obscured by overlying bowel gas. Dictated by: Alyce Shaver M.D. on 03/06/2022 at 12:24 Approved by: Alyce Shaver M.D. on 03/06/2022 at 12:26
== END 2022-03-06 12:48 | disposition home or self-care (01) ==
PROVIDERS: Emergency Provider Emergency Medicine; PCP Internal Medicine
DX: R10.11 Right upper quadrant pain (principal)
CPT/HCPCS: 74177; 76705; 80053; 81003; 83605; 83690; 85025; 99284; Q9967

== ENCOUNTER 2022-12-09 08:10 | Emergency (ER) | payer MEDICARE, OTHER, SELFPAY ==
[2022-12-09] VITALS (9 sets, daily range): BP systolic 123–145; BP diastolic 61–90; PULSE 60–90; RESP 12–22; TEMP 36.4; O2SAT 98; BMI 32.3
--- NOTE | 2022-12-09 08:22 | ED.EXTPRO ---
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 Patient was diagnosed last August he is on trabectedin and receiving targeted therapy since August or approximately 6 weeks with minimal side effects besides swelling and some redness of hands and feet. Patient was noted to have a superficial thrombophlebitis in July and was planning to travel so was started on Lovenox twice daily for 30 days that improved but then started developed some increasing swelling of his right lower extremity. During patient's evaluation his CT of his chest was found to have what looks like some bumps along the right main pulmonary artery that were less than a cm he was told did look exactly like a clot may have been embolism of the glue for his right hip replacement for his metastatic disease. Because of his hypercoagulable state he was started on Lovenox 100 mg twice daily, he states he has been using this regularly without any missed doses. He states he is using this instead of a oral anticoagulation at his own preference. Patient states he is never had any chest pain or shortness of breath, he has not had any palpitations, he states no fevers or chills. He is had nausea twice during his entire course of treatment. He denies any diarrhea or constipation. He notes 2 weeks ago his right lower extremity started having increasing swelling tracking up the leg week ago started had increasing swelling of the left leg. He states now swelling is all the way up to his buttocks the quite a bit of dependent edema. He also noticed a lot of aching and discomfort and feels like his vessels or sort of palpable in his upper extremities. He has done quite a bit of research found there can be sort of a transient or migratory thrombophlebitis that is sometimes associated with oncology treatment. Patient states upper extremities have not been particularly swollen. Patient is supposed to fly back to [place] where he has been having his treatment tomorrow and was concerned about developing of new clot particularly with his increased swelling of extremities. Patient has not had any other fevers or chills no other systemic symptoms. Daily medications include Lovenox 100 mg twice daily every 12 hours patient states no missed doses Norvasc, Synthroid, colchicine as needed for gout, Zetia, metformin twice daily, aspirin when he travels but not daily. Allergic to quinolones, no tobacco, alcohol or illicit regularly. Primary care has been Dr. Conteh but has not seen him in the past year as he is living and spending most of his time in [place] his care is a doctor [facility] at [facility]. Related Data Home Medications Medication Instructions Recorded Confirmed levothyroxine 112 mcg tablet 112 mcg PO QAM ##0 09/07/17 11/27/22 (Synthroid) enoxaparin 40 mg/0.4 mL 40 mg SUBCUT DAILY 11/27/22 11/27/22 subcutaneous syringe (Lovenox) Previous Rx's Medication Instructions Recorded atenolol 50 mg tablet 50 mg PO QDAY #90 tabs 09/07/17 metoprolol succinate 100 mg 100 mg PO QDAY #90 tabs 09/07/17 tablet,extended release 24 hr furosemide 20 mg tablet (Lasix) 20 mg PO DAILY #20 tabs 12/09/22 Allergies Allergy/AdvReac Type Severity Reaction Status Date / Time Quinolones AdvReac Rash Verified 12/09/22 08:18 Review of Systems Review of Systems ROS Unobtainable: All systems reviewed & are unremarkable except as noted in HPI and below Patient History Medical History Adenomatous polyp of colon Diabetes Family history of abdominal aortic aneurysm (AAA) (08/06/14) Gout Hyperlipidemia Hypertension Hypothyroidism Social History Smoking Status: Never smoker Smoking Status: Never smoker alcohol intake frequency: 0-2 drinks per day Substance Use Type: does not use Exam Narrative Exam Narrative: GENERAL: Alert and oriented x three, male in mild distress. HEENT: Head normocephalic, atraumatic, EOMI, pupils reactive, face symmetric, moist mucous membranes NECK: Supple, full range of motion CARDIOVASCULAR: Regular rate and rhythm without murmurs, rubs or gallops. No JVD appreciated but difficult secondary to habitus. 2+ pedal edema and pretibial bilateral lower extremities tracking upwards. RESPIRATORY: Breath sounds equal bilaterally, no wheezes rales or rhonchi. No tachypnea or accessory muscle use. ABDOMEN: Soft, nontender. Normoactive bowel sounds all 4 quadrants. No guarding or rebound, rigidity, no mass : No CVA tenderness EXTREMITIES: Normal range of motion, no clubbing. Patient has swelling bilateral lower extremities as above, no swelling appreciated of the upper extremities. 2+ radial pulses and 2+ dorsalis pulses bilaterally. Normal sensation throughout. Neurovascularly intact NEUROLOGICAL: Cranial nerves II through XII grossly intact. Moving all extremities SKIN: Warm, dry, no petechiae, patient has some faint erythema over the dorsum of the foot, has some chronic venous stasis changes particularly of the right salgado. Initial Vital Signs Initial Vital Signs: Vital Signs Temperature 97.6 F 12/09/22 08:13 Pulse Rate 90 12/09/22 08:13 Respiratory Rate 18 12/09/22 08:13 Blood Pressure 145/86 H 12/09/22 08:13 Pulse Oximetry 98 12/09/22 08:13 Oxygen Delivery Method Room Air 12/09/22 08:13 Course Orders Ordered: Discontinued Medications Aspirin (Aspirin 81 Mg Chew Tab) 324 mg PO NOW ONE Stop: 12/09/22 08:53 Last Admin: 12/09/22 09:00 Dose: 324 mg Documented By: JOEY Vital Signs Vital signs: Vital Signs - 8 hr 12/09/22 08:13 12/09/22 08:24 12/09/22 08:30 Temperature 97.6 F Pulse Rate 90 83 Respiratory Rate 18 22 Blood Pressure 145/86 H 145/81 H Pulse Oximetry 98 Oxygen Delivery Method Room Air 12/09/22 08:30 12/09/22 09:11 12/09/22 09:12 Temperature Pulse Rate 84 74 Respiratory Rate 22 Blood Pressure 123/90 Pulse Oximetry Oxygen Delivery Method 12/09/22 09:12 12/09/22 09:30 12/09/22 09:30 Temperature Pulse Rate 73 72 Respiratory Rate 16 Blood Pressure 145/62 H Pulse Oximetry Oxygen Delivery Method 12/09/22 10:00 12/09/22 10:01 12/09/22 10:01 Temperature Pulse Rate 63 63 Respiratory Rate 15 Blood Pressure 125/61 Pulse Oximetry Oxygen Delivery Method 12/09/22 10:30 Temperature Pulse Rate 60 Respiratory Rate 12 Blood Pressure Pulse Oximetry Oxygen Delivery Method MDM - Extremity (Nontraumatic) Lab Data 12/09/22 08:35 12/09/22 08:35 Labs: Lab Results 12/09/22 12/09/22 12/09/22 Range/Units 08:35 08:35 08:35 WBC 4.6 (4.5-11.0) X10^3/uL RBC 4.89 (4.5-5.9) X10^6/uL Hgb 14.6 (13.5-17.5) g/dL Hct 43.5 (41-53) % MCV 89.0 (80-100) fL MCH 29.9 (26-34) PG MCHC 33.6 (30-36) % RDW 17.1 H (11.6-14.8) % Plt Count 193 (150-400) X10^3/uL Neut % (Auto) 56.4 (50-75) % Lymph % (Auto) 29.9 (25-40) % Jerauld % (Auto) 7.4 (3-14) % Eos % (Auto) 5.0 H (2-4) % Baso % (Auto) 1.3 (0-2) % Neut # (Auto) 2600 (8382-1238) /uL Lymph # (Auto) 1400 (1324-8044) /uL Jerauld # (Auto) 300 (0-900) /uL Eos # (Auto) 200 (0-450) /uL Baso # (Auto) 100 (0-100) /uL ESR 1 (0-15) MM/HR D-Dimer 351 (<500) ng/ml Sodium 137 (137-145) mmol/L Potassium 4.0 (3.4-5.1) mmol/L Chloride 108 H (98-107) mmol/L Carbon Dioxide 24 (22-32) mmol/L BUN 13 (9-20) mg/dL Creatinine 0.81 (0.66-1.25) mg/dL Estimated GFR > 60 (>60) mL/min BUN/Creatinine Ratio 16.0 (6-22) Glucose 122 H (80-110) mg/dL Calcium 7.9 L (8.4-10.2) mg/dL Total Bilirubin 0.5 (0.2-1.3) mg/dL AST 22 (17-59) IU/L ALT 27 (<50) IU/L Alkaline Phosphatase 120 (38-126) U/L Total Creatine Kinase 47 L (55-170) U/L Troponin I < 0.012 (0.01-0.034) ng/mL C-Reactive Protein 1.0 (<1.0) mg/dL NT-Pro-B Natriuret Pep 138 (<450) pg/mL Total Protein 5.7 L (6.3-8.2) g/dL Albumin 3.0 L (3.5-5.0) g/dL Globulin 2.7 (1.7-4.1) g/dL Albumin/Globulin Ratio 1.1 (1.0-2.8) Lipase 125 (23-300) U/L Imaging Data CT scan - chest: Radiologist's Impression: [address] [address] [address] Scan Report Signed Patient: Brandon Ramirez MR#: [id number] : 1945 Acct:[id number] Age/Sex: 77 / M Date of Service: 12/09/22 Loc: ED Accession Number: [id number] ?? Procedure: CT angio chest PE protocol Ordering Provider: Sharee Schreiber D.O. PROCEDURE:? CT ANGIO CHEST PE PROTOCOL ? INDICATIONS:? stage 4 adeno, concern for PE or venous clot ? TECHNIQUE:? After the administration of intravenous contrast, 2 mm thick sections acquired from the pulmonary apices to the posterior costophrenic angles.? 3-dimensional maximum intensity projection (MIP) coronal and sagittal reformats were then acquired through the thorax.? For radiation dose reduction, the following was used:? automated exposure control, adjustment of mA and/or kV according to patient size.? ? COMPARISON:? None. ? FINDINGS:? Image quality:? Excellent.? ? Pulmonary arteries:? Pulmonary arteries are normal in size, and demonstrate no intraluminal filling defects to suggest central pulmonary embolism.? ? Lungs and pleura:? 1.3 x 1.3 cm solid nodule with spiculated margin is noted in anterior medial aspect of left upper lobe series 6, image 70. No other suspicious pulmonary nodule or mass is identified.? Dependent atelectasis in posterior aspect of bilateral lower lobes are seen.? No pleural effusions or pneumothorax.? Central and peripheral airways are patent.? ? Mediastinum:? Heart size is mildly enlarged, without pericardial effusion.? No mediastinal or hilar adenopathy.? Moderate atherosclerotic calcifications in coronary vessels and thoracic aorta are seen.? Thoracic aorta is normal in caliber and enhancement.? Esophagus is normal in caliber, with a small hiatal hernia.? ? Bones and chest wall:? No suspicious bony lesions.? Ribs and thoracic spine appear intact throughout.? Thyroid gland is within normal limits..? No axillary or supraclavicular adenopathy.? ? Abdomen:? Visualized upper abdominal solid organs appear normal in the early arterial phase of enhancement.? ? IMPRESSION:? ? 1. No evidence of pulmonary emboli.? No thoracic aortic aneurysm or gross dissection. ? 2. 1.3 x 1.3 cm spiculated solid nodule in anterior medial left upper lobe concerning for pulmonary malignancy.? Scattered atelectasis in posterior aspect of bilateral lower lobes are seen.? No other area of abnormal airspace opacities.? No pleural effusion or pneumothorax.? Airway is patent. ? 3. No mediastinal or hilar lymphadenopathy by size criteria.? Heart size is enlarged, no pericardial effusion. ? Dictated by: Ag Molina M.D. on 12/09/2022 at 9:14 ? ? Approved by: Ag Molina M.D. on 12/09/2022 at 9:18?? CT scan - abdomen/pelvis: Radiologist's Impression: Brandon Ramirez??77??M??1945 ? Allergy/Adv: Quinolones Close Chest CTA (Signed) Ag Molina - 12/09/22 Abdomen/Pelvis CT (Signed) Alyce Shaver - 12/09/22 Abdomen Ultrasound (Signed) Alyce Shaver - 03/06/22 Abdomen/Pelvis CT (Signed) Alyce Shaver - 03/06/22 Chest X-Ray (Signed) Franki Mckeon - 10/06/20 Telemetry Strips 10/06/20 Chest X-Ray (Signed) Aniket Vergara - 08/20/20 Telemetry Strips 08/20/20 Myocardial Perfusion Scan Nuc Med (Signed) Brit Ocampo - 06/03/20 Radiology Report (Cancelled) Maxx Bermudez - 10/12/17 Myocardial Perfusion Scan Nuc Med (Signed) Maxx eBrmudez - 10/11/17 Launch?Image [address] [address] [address] Scan Report Signed Patient: Brandon Ramirez MR#: [id number] : 1945 Acct:[id number] Age/Sex: 77 / M Date of Service: 12/09/22 Loc: ED Accession Number: [id number] ?? Procedure: CT abdomen pelvis w con Ordering Provider: Sharee Schreiber D.O. PROCEDURE:? CT ABDOMEN PELVIS W CON ? INDICATIONS:? STAGE 4 LUNG CANCER CONCERN FOR CLOTS ? TECHNIQUE:? After the administration of oral and IV contrast, axial sections were acquired from the lung bases to the pubic symphysis.? Coronal and sagittal reformats were performed.? For radiation dose reduction, the following was used:? automated exposure control, adjustment of mA and/or kV according to patient size. ? COMPARISON:? [facility], CT, CT ANGIO CHEST PE PROTOCOL, 12/09/2022, 9:04.? [facility], CT, CT ABDOMEN PELVIS W CON, 03/06/2022, 9:56. ? FINDINGS:? Image quality:? Excellent.? ? Lung bases:? Lungs are clear.? Small hiatal hernia is noted. ? Heart:? No significant findings.? Mild coronary artery calcification. ? ? ABDOMEN: Liver:? Liver is normal in size.? Mild hepatic steatosis.? ? Gallbladder:? Unremarkable.? ? Biliary ducts:? Unremarkable.? ? Pancreas:? Unremarkable.? ? Spleen:? Unremarkable.? ? Adrenal Glands:? Unremarkable.? ? Kidneys and Ureters:? Unremarkable.? ? ? Stomach and Bowel:? Stomach, small bowel loops, and colon are unremarkable.? Diverticulosis without acute diverticulitis.? There is a large amount of stool in colon. Peritoneum:? No abnormal intraperitoneal fluid.? No free air.? ? Ventral Wall: ? Small fat containing umbilical hernia.? Abdominal Nodes:? No retroperitoneal or mesenteric adenopathy by size criteria.? Vessels:? Aorta and inferior vena cava are normal in size.? ? PELVIS: Pelvic Organs:? Unremarkable.? ? Bladder:? Unremarkable.? ? Pelvic Nodes: No enlarged lymph nodes.? Miscellaneous:? Small fat containing right inguinal hernia is seen. ? ? ? Bones:? There is a new mixed lytic and blastic lesion in L3 involving the vertebral body, the right pedicle and transverse process, consistent with metastasis.? ? Right hip arthroplasty ? ? IMPRESSION:? ? 1. No acute abnormalities in abdomen or pelvis. ? 2. New mixed lytic and blastic bone lesion in L3, compatible with osseous metastasis.? Recommend whole body bone scan for follow-up evaluation. ? 3. No lymphadenopathy in abdomen or pelvis. ? 4. No definitive filling defects in IVC, iliac veins or proximal femoral vein although the right femoral vein is suboptimally visualized due to metallic artifacts.? Recommend venous Doppler ultrasound for further evaluation if clinically indicated ? ? ? Dictated by: Alyce Shaver M.D. on 12/09/2022 at 9:13 ? ? Approved by: Alyce Shaver M.D. on 12/09/2022 at 9:25?? ECG Data Attestation EKG: I personally reviewed and interpreted this ECG as follows: Interpretation: Sinus rhythm rate 81 NJ 158 QRS [address]TC [address]. No acute ST elevation or depression noted. MDM Narrative Medical decision making narrative: 77-year-old male presents with complaint of increased swelling bilateral lower extremities tracking up into his abdomen. Patient has known adenocarcinoma is on Lovenox twice daily but did have a small superficial clot in his right lower extremity in the past and had questionable clot in the pulmonary artery which is why patient was placed on Lovenox regularly. He is on this instead of oral anticoagulation at patient's personal request. Patient does have swelling quite a bit, cardiac workup including for CHF so far is negative. Patient did ask for D-dimer for baseline. ESR and CRP were included as well for potential vasculitis as patient noticed a lot of hoarding of his vessels in his arms. Bilateral DVTs upper and lower extremities were obtained and were negative. Discussed with patient about short course of diuretic. Plan to continue Lovenox. Discharge Plan Departure Patient Disposition: Home Clinical Impression: Swelling of both lower extremities Activity Restrictions/Additional Instructions: Follow-up with your oncology team. Your labs overall today very good. Imaging shows a 1.3 cm spiculated nodule in the left lung, there is lesion at L3 consistent with what you describe to me. No signs of clot on the chest, abdominal portion of your CT imaging or in your upper or lower extremities on DVT. Please continue your Lovenox as prescribed. You can take Lasix 1 tablet daily as needed for swelling. Prescription sent to [facility] in [place]. Please return or go to the closest ER for new chest pain, shortness of breath, rapidly worsening swelling, fevers, difficulty with breathing, new redness, skin changes or other new or concerning changes. Prescriptions: New furosemide [Lasix] 20 mg tablet 20 mg PO DAILY Qty: 20 0RF No Action enoxaparin [Lovenox] 40 mg/0.4 mL syringe 40 mg SUBCUT DAILY levothyroxine [Synthroid] 112 MCG tablet 112 mcg PO QAM Qty: 0 metoprolol succinate 100 MG tablet extended release 24 hr 100 mg PO QDAY Qty: 90 4RF atenolol 50 MG tablet 50 mg PO QDAY Qty: 90 3RF Referrals: Rehana Conteh MD [Primary Care Provider] - Stand Alone Forms: Patient Portal/API
--- NOTE | 2022-12-09 08:52 | DI.US.S_ITS ---
PROCEDURE: US PERIPH VENOUS UP EXTREM CICI INDICATIONS: swelling arms legs, had clot before TECHNIQUE: Real-time imaging, as well as color and pulse Doppler interrogation, was performed of both upper extremity deep veins from the inferior neck to the antecubital fossa. COMPARISON: None. FINDINGS: Right: The internal jugular veins, visualized portions of the subclavian veins, axillary veins, and brachial veins are free of intraluminal thrombus. Where physically possible, the veins are normally compressible. Color and pulse Doppler demonstrate normal intraluminal flow, with expected phasicity and pulsatility. Additional scanning of the cephalic and basilic veins of the superficial system demonstrate normal compressibility, without thrombus. Left: The internal jugular veins, visualized portions of the subclavian veins, axillary veins, and brachial veins are free of intraluminal thrombus. Where physically possible, the veins are normally compressible. Color and pulse Doppler demonstrate normal intraluminal flow, with expected phasicity and pulsatility. Additional scanning of the cephalic and basilic veins of the superficial system demonstrate normal compressibility, without thrombus. IMPRESSION: No evidence of DVT in visualized bilateral upper extremity veins. Dictated by: Ag Molina M.D. on 12/09/2022 at 11:04 Approved by: Ag Molina M.D. on 12/09/2022 at 11:04
--- NOTE | 2022-12-09 08:52 | DI.US.S_ITS ---
PROCEDURE: US PERIPH VENOUS LOW EXTREM BI INDICATIONS: swelling arms legs, had clot before TECHNIQUE: Real-time imaging, as well as color and pulse Doppler interrogation, were performed of the deep veins of both legs from the inguinal ligament to the popliteal fossa. COMPARISON: None. FINDINGS: Right: The common femoral, femoral and popliteal veins are normally compressible, and free of intraluminal thrombus. Color and pulse Doppler demonstrate normal phasic intravascular flow. There is normal augmentation response to distal compression maneuver. Left: The common femoral, femoral and popliteal veins are normally compressible, and free of intraluminal thrombus. Color and pulse Doppler demonstrate normal phasic intravascular flow. There is normal augmentation response to distal compression maneuver. IMPRESSION: No evidence of DVT in visualized bilateral lower extremity veins. Dictated by: Ag Molina M.D. on 12/09/2022 at 11:04 Approved by: Ag Molina M.D. on 12/09/2022 at 11:04
--- NOTE | 2022-12-09 08:59 | DI.CT.S_ITS ---
PROCEDURE: CT ABDOMEN PELVIS W CON INDICATIONS: STAGE 4 LUNG CANCER CONCERN FOR CLOTS TECHNIQUE: After the administration of oral and IV contrast, axial sections were acquired from the lung bases to the pubic symphysis. Coronal and sagittal reformats were performed. For radiation dose reduction, the following was used: automated exposure control, adjustment of mA and/or kV according to patient size. COMPARISON: [facility], CT, CT ANGIO CHEST PE PROTOCOL, 12/09/2022, 9:04. [facility], CT, CT ABDOMEN PELVIS W CON, 03/06/2022, 9:56. FINDINGS: Image quality: Excellent. Lung bases: Lungs are clear. Small hiatal hernia is noted. Heart: No significant findings. Mild coronary artery calcification. ABDOMEN: Liver: Liver is normal in size. Mild hepatic steatosis. Gallbladder: Unremarkable. Biliary ducts: Unremarkable. Pancreas: Unremarkable. Spleen: Unremarkable. Adrenal Glands: Unremarkable. Kidneys and Ureters: Unremarkable. Stomach and Bowel: Stomach, small bowel loops, and colon are unremarkable. Diverticulosis without acute diverticulitis. There is a large amount of stool in colon. Peritoneum: No abnormal intraperitoneal fluid. No free air. Ventral Wall: Small fat containing umbilical hernia. Abdominal Nodes: No retroperitoneal or mesenteric adenopathy by size criteria. Vessels: Aorta and inferior vena cava are normal in size. PELVIS: Pelvic Organs: Unremarkable. Bladder: Unremarkable. Pelvic Nodes: No enlarged lymph nodes. Miscellaneous: Small fat containing right inguinal hernia is seen. Bones: There is a new mixed lytic and blastic lesion in L3 involving the vertebral body, the right pedicle and transverse process, consistent with metastasis. Right hip arthroplasty IMPRESSION: 1. No acute abnormalities in abdomen or pelvis. 2. New mixed lytic and blastic bone lesion in L3, compatible with osseous metastasis. Recommend whole body bone scan for follow-up evaluation. 3. No lymphadenopathy in abdomen or pelvis. 4. No definitive filling defects in IVC, iliac veins or proximal femoral vein although the right femoral vein is suboptimally visualized due to metallic artifacts. Recommend venous Doppler ultrasound for further evaluation if clinically indicated Dictated by: Alyce Shaver M.D. on 12/09/2022 at 9:13 Approved by: Alyce Shaver M.D. on 12/09/2022 at 9:25
[2022-12-09] MEDS: ASPIRIN 81 MG CHEW TAB 324 MG PO (09:00)
[2022-12-09 09:01] LABS: Add Manual Diff / Slide Review NO; Basophils Absolute Auto 100 /uL (0-100); Basophils Percent Auto 1.3 % (0-2); Eosinophils Absolute Auto 200 /uL (0-450); Hematocrit 43.5 % (41-53); Hemoglobin 14.6 g/dL (13.5-17.5); Lymphocytes Absolute Auto 1400 /uL (1100-4500); Lymphocytes Percent Auto 29.9 % (25-40); Mean Corpuscular HGB Conc 33.6 % (30-36); Mean Corpuscular Hemoglobin 29.9 PG (26-34); Monocytes Absolute Auto 300 /uL (0-900); Monocytes Percent Auto 7.4 % (3-14); Neutrophils Absolute Auto 2600 /uL (1500-7000); Neutrophils Percent Auto 56.4 % (50-75); Platelet Count 193 X10^3/uL (150-400); Red Blood Cell Count 4.89 X10^6/uL (4.5-5.9); Red Cell Distribution Width 17.1 % (11.6-14.8); White Blood Cell Count 4.6 X10^3/uL (4.5-11.0)
--- NOTE | 2022-12-09 09:01 | DI.CT.S_ITS ---
PROCEDURE: CT ANGIO CHEST PE PROTOCOL INDICATIONS: stage 4 adeno, concern for PE or venous clot TECHNIQUE: After the administration of intravenous contrast, 2 mm thick sections acquired from the pulmonary apices to the posterior costophrenic angles. 3-dimensional maximum intensity projection (MIP) coronal and sagittal reformats were then acquired through the thorax. For radiation dose reduction, the following was used: automated exposure control, adjustment of mA and/or kV according to patient size. COMPARISON: None. FINDINGS: Image quality: Excellent. Pulmonary arteries: Pulmonary arteries are normal in size, and demonstrate no intraluminal filling defects to suggest central pulmonary embolism. Lungs and pleura: 1.3 x 1.3 cm solid nodule with spiculated margin is noted in anterior medial aspect of left upper lobe series 6, image 70. No other suspicious pulmonary nodule or mass is identified. Dependent atelectasis in posterior aspect of bilateral lower lobes are seen. No pleural effusions or pneumothorax. Central and peripheral airways are patent. Mediastinum: Heart size is mildly enlarged, without pericardial effusion. No mediastinal or hilar adenopathy. Moderate atherosclerotic calcifications in coronary vessels and thoracic aorta are seen. Thoracic aorta is normal in caliber and enhancement. Esophagus is normal in caliber, with a small hiatal hernia. Bones and chest wall: No suspicious bony lesions. Ribs and thoracic spine appear intact throughout. Thyroid gland is within normal limits.. No axillary or supraclavicular adenopathy. Abdomen: Visualized upper abdominal solid organs appear normal in the early arterial phase of enhancement. IMPRESSION: 1. No evidence of pulmonary emboli. No thoracic aortic aneurysm or gross dissection. 2. 1.3 x 1.3 cm spiculated solid nodule in anterior medial left upper lobe concerning for pulmonary malignancy. Scattered atelectasis in posterior aspect of bilateral lower lobes are seen. No other area of abnormal airspace opacities. No pleural effusion or pneumothorax. Airway is patent. 3. No mediastinal or hilar lymphadenopathy by size criteria. Heart size is enlarged, no pericardial effusion. Dictated by: Ag Molina M.D. on 12/09/2022 at 9:14 Approved by: Ag Molina M.D. on 12/09/2022 at 9:18
[2022-12-09 09:10] LABS: Alanine Aminotransferase 27 IU/L (<50); Albumin Globulin Ratio 1.1 (1.0-2.8); Alkaline Phosphatase 120 U/L (38-126); Aspartate Aminotransferase 22 IU/L (17-59); Bilirubin Total 0.5 mg/dL (0.2-1.3); Blood Urea Nitrogen 13 mg/dL (9-20); Calcium 7.9 mg/dL (8.4-10.2); Carbon Dioxide 24 mmol/L (22-32); Chloride 108 mmol/L (98-107); Creatine Kinase 47 U/L (55-170); Estimated Glomerular Filt Rate > 60 mL/min (>60); Globulin 2.7 g/dL (1.7-4.1); Glucose 122 mg/dL (80-110); HEMOLYSIS 24 (0-50); Lipase 125 U/L (23-300); Sodium 137 mmol/L (137-145); Total Protein 5.7 g/dL (6.3-8.2)
[2022-12-09 09:19] LABS: NT-proBNP (BNP-Adult 18+) 138 pg/mL (<450); Troponin I < 0.012 ng/mL (0.01-0.034)
[2022-12-09 09:50] LABS: Erythrocyte Sedimentation Rate 1 MM/HR (0-15)
[2022-12-09 10:01] LABS: D Dimer 351 ng/ml (<500)
== END 2022-12-09 11:24 | disposition home or self-care (01) ==
PROVIDERS: Emergency Provider Emergency Medicine; PCP Internal Medicine
DX: R60.0 Localized edema (principal); C34.90 Malignant neoplasm of unspecified part of unspecified bronchus or lung
CPT/HCPCS: 36415; 71275; 74177; 80053; 82550; 83690; 83880; 84484; 85025; 85379; 85651; 86140; 93005; 93970; 99284; Q9967

== ENCOUNTER → 2023-01-30 09:29 | Outpatient (CLI) | payer MEDICARE, OTHER, SELFPAY ==
[2023-01-30 10:50] LABS: Add Manual Diff / Slide Review NO; Basophils Absolute Auto 100 /uL (0-100); Basophils Percent Auto 1.2 % (0-2); Eosinophils Absolute Auto 300 /uL (0-450); Eosinophils Percent Auto 4.5 % (2-4); Hematocrit 45.7 % (41-53); Hemoglobin 15.5 g/dL (13.5-17.5); Lymphocytes Absolute Auto 1600 /uL (1100-4500); Lymphocytes Percent Auto 22.7 % (25-40); Mean Corpuscular HGB Conc 33.8 % (30-36); Mean Corpuscular Hemoglobin 31.1 PG (26-34); Mean Corpuscular Volume 91.8 fL (80-100); Monocytes Absolute Auto 600 /uL (0-900); Monocytes Percent Auto 8.2 % (3-14); Neutrophils Absolute Auto 4500 /uL (1500-7000); Neutrophils Percent Auto 63.4 % (50-75); Platelet Count 236 X10^3/uL (150-400); Red Blood Cell Count 4.98 X10^6/uL (4.5-5.9); Red Cell Distribution Width 15.7 % (11.6-14.8); White Blood Cell Count 7.1 X10^3/uL (4.5-11.0)
[2023-01-30 11:06] LABS: Erythrocyte Sedimentation Rate 1 MM/HR (0-15)
[2023-01-30 11:20] LABS: Alanine Aminotransferase 29 IU/L (<50); Albumin 3.1 g/dL (3.5-5.0); Albumin Globulin Ratio 1.2 (1.0-2.8); Alkaline Phosphatase 102 U/L (38-126); Aspartate Aminotransferase 22 IU/L (17-59); Bilirubin Total 0.6 mg/dL (0.2-1.3); Blood Urea Nitrogen 21 mg/dL (9-20); Calcium 8.9 mg/dL (8.4-10.2); Carbon Dioxide 23 mmol/L (22-32); Chloride 106 mmol/L (98-107); Cholesterol 127 mg/dL (140-199); Estimated Glomerular Filt Rate > 60 mL/min (>60); Globulin 2.5 g/dL (1.7-4.1); Glucose 145 mg/dL (80-110); HDL Cholesterol 38 mg/dL (40-60); HEMOLYSIS < 15 (0-50); LDL Cholesterol Calculated 66 mg/dL (<100); Potassium 4.6 mmol/L (3.4-5.1); Sodium 137 mmol/L (137-145); Total Protein 5.6 g/dL (6.3-8.2); Triglycerides 117 mg/dL (35-150)
[2023-01-30 11:51] LABS: Thyroid Stimulating Hormone 2.25 uIU/mL (0.47-4.68)
[2023-01-30 12:10] LABS: Vitamin B12 695 pg/mL (239-931)
== END ==
PROVIDERS: PCP Internal Medicine; Referring Provider Internal Medicine; Visit Provider Internal Medicine
DX: E78.00 Pure hypercholesterolemia, unspecified (principal); E11.9 Type 2 diabetes mellitus without complications; I10 Essential (primary) hypertension; N40.0 Benign prostatic hyperplasia without lower urinary tract symptoms; Z79.899 Other long term (current) drug therapy; E66.8 Other obesity
CPT/HCPCS: 36415; 80053; 80061; 82607; 83735; 84443; 85025; 85651

== ENCOUNTER → 2023-02-18 12:18 | Outpatient (CLI) | payer MEDICARE, OTHER, SELFPAY ==
[2023-02-18 12:49] LABS: Add Manual Diff / Slide Review NO; Basophils Absolute Auto 100 /uL (0-100); Basophils Percent Auto 0.9 % (0-2); Eosinophils Absolute Auto 300 /uL (0-450); Eosinophils Percent Auto 5.2 % (2-4); Hematocrit 44.8 % (41-53); Hemoglobin 15.1 g/dL (13.5-17.5); Lymphocytes Absolute Auto 1400 /uL (1100-4500); Lymphocytes Percent Auto 20.7 % (25-40); Mean Corpuscular HGB Conc 33.7 % (30-36); Mean Corpuscular Hemoglobin 31.4 PG (26-34); Mean Corpuscular Volume 93.1 fL (80-100); Monocytes Absolute Auto 400 /uL (0-900); Monocytes Percent Auto 6.6 % (3-14); Neutrophils Absolute Auto 4400 /uL (1500-7000); Neutrophils Percent Auto 66.6 % (50-75); Platelet Count 209 X10^3/uL (150-400); Red Blood Cell Count 4.81 X10^6/uL (4.5-5.9); Red Cell Distribution Width 14.7 % (11.6-14.8); White Blood Cell Count 6.6 X10^3/uL (4.5-11.0)
[2023-02-18 13:10] LABS: Erythrocyte Sedimentation Rate 1 MM/HR (0-15)
[2023-02-18 13:13] LABS: Alanine Aminotransferase 23 IU/L (<50); Albumin 2.9 g/dL (3.5-5.0); Albumin Globulin Ratio 1.1 (1.0-2.8); Alkaline Phosphatase 103 U/L (38-126); Aspartate Aminotransferase 19 IU/L (17-59); Bilirubin Total 0.2 mg/dL (0.2-1.3); Blood Urea Nitrogen 20 mg/dL (9-20); Calcium 8.7 mg/dL (8.4-10.2); Carbon Dioxide 25 mmol/L (22-32); Chloride 107 mmol/L (98-107); Cholesterol 129 mg/dL (140-199); Estimated Glomerular Filt Rate > 60 mL/min (>60); Globulin 2.7 g/dL (1.7-4.1); Glucose 124 mg/dL (80-110); HDL Cholesterol 36 mg/dL (40-60); HEMOLYSIS < 15 (0-50); LDL Cholesterol Calculated 66 mg/dL (<100); Magnesium 1.9 mg/dL (1.6-2.3); Potassium 4.4 mmol/L (3.4-5.1); Sodium 136 mmol/L (137-145); Total Protein 5.6 g/dL (6.3-8.2); Triglycerides 137 mg/dL (35-150)
[2023-02-18 13:44] LABS: Thyroid Stimulating Hormone 1.58 uIU/mL (0.47-4.68)
[2023-02-18 14:01] LABS: Vitamin B12 781 pg/mL (239-931)
== END ==
PROVIDERS: PCP Internal Medicine; Referring Provider Internal Medicine; Visit Provider Internal Medicine
DX: E78.00 Pure hypercholesterolemia, unspecified (principal); E11.9 Type 2 diabetes mellitus without complications; N40.0 Benign prostatic hyperplasia without lower urinary tract symptoms; I10 Essential (primary) hypertension; E66.8 Other obesity; Z79.899 Other long term (current) drug therapy
CPT/HCPCS: 36415; 80053; 80061; 82607; 83735; 84443; 85025; 85651

== ENCOUNTER 2023-04-26 22:11 | Inpatient (IN) | payer MEDICARE, OTHER, SELFPAY ==
[2023-04-26 22:27] VITALS: BP 146/78; PULSE 93; RESP 20; TEMP 36.9; O2SAT 97; BMI 34.8
--- NOTE | 2023-04-26 22:31 | ED_ITS ---
HPI - General Adult General Chief complaint: Extremity Problem,Nontraumatic Stated complaint: Left leg issues, very painful, Fever 101F chills Time Seen by Provider: 04/26/23 22:15 Source: patient Mode of arrival: Ambulatory Limitations: no limitations History of Present Illness HPI narrative: Patient is a 78-year-old male. Has metastatic adenocarcinoma of his lung. He is undergoing oral chemotherapy/immune modulating medication. He gets his chemotherapy care at [place]. He splits his time between [place] and here locally. He states that yesterday he started to have redness on the top of his left foot. Since that time redness has extended up his leg and his inner thigh. Earlier today he was having fevers and chills. It is also painful. He is on anticoagulation. He is had similar symptoms in the past that required hospital admission for IV antibiotics. Related Data Home Medications Medication Instructions Recorded Confirmed levothyroxine 112 mcg tablet 112 mcg PO QAM ##0 09/07/17 11/27/22 (Synthroid) enoxaparin 40 mg/0.4 mL 40 mg SUBCUT DAILY 11/27/22 11/27/22 subcutaneous syringe (Lovenox) Previous Rx's Medication Instructions Recorded atenolol 50 mg tablet 50 mg PO QDAY #90 tabs 09/07/17 metoprolol succinate 100 mg 100 mg PO QDAY #90 tabs 09/07/17 tablet,extended release 24 hr furosemide 20 mg tablet (Lasix) 20 mg PO DAILY #20 tabs 12/09/22 Allergies Allergy/AdvReac Type Severity Reaction Status Date / Time Quinolones AdvReac Rash Verified 12/09/22 08:18 Review of Systems Constitutional Constitutional: Reports system reviewed and no additional complaints, except as documented Cardiovascular Cardiovascular: Reports system reviewed and no additional complaints, except as documented Respiratory Respiratory: Reports system reviewed and no additional complaints, except as documented Gastrointestinal Gastrointestinal: Reports system reviewed and no additional complaints, except as documented Musculoskeletal Musculoskeletal: Reports system reviewed and no additional complaints, except as documented Integumentary/Breasts Skin/Breast: Reports system reviewed and no additional complaints, except as documented Neurologic Neurologic: Reports system reviewed and no additional complaints, except as documented Hematologic/Lymphatic On Anticoagulants: Yes Patient History Medical History Diabetes Family history of abdominal aortic aneurysm (AAA) (08/06/14) Hypothyroidism Hypertension Hyperlipidemia Gout Adenomatous polyp of colon Social History Smoking Status: Never smoker Smoking Status: Never smoker alcohol intake frequency: 0-2 drinks per day Substance Use Type: does not use Exam Initial Vital Signs Initial Vital Signs: Vital Signs Temperature 98.5 F 04/26/23 22:27 Pulse Rate 93 H 04/26/23 22:27 Respiratory Rate 20 04/26/23 22:27 Blood Pressure 146/78 H 04/26/23 22:27 Pulse Oximetry 97 04/26/23 22:27 Oxygen Delivery Method Room Air 04/26/23 22:27 Const General: cooperative, comfortable and No ill appearing HENMT Head: normal to inspection and normocephalic Resp Effort & Inspection: normal respiratory effort Cardio Rate: tachycardic Skin Other: Patient with warmth and redness of the left lower extremity from his ankle to his knee. It extends along the medial portion of his left thigh. There are no vesicles. No pustules. Neuro General: patient alert and patient awake Extrem Other: Swelling of bilateral lower extremities. Course Orders Ordered: ED Orders 04/26/23 22:30 Complete Blood Count AUTO DIFF Stat Comprehensive Metabolic Panel Stat Lactate (Lactic Acid) Stat Lipase Stat Procalcitonin Stat 04/26/23 23:02 Blood Culture Stat Acetaminophen (Acetaminophen 325 Mg Tablet) 650 mg PO Q6H PRN PRN Reason: Fever/Mild Pain (1-3) Sodium Chloride (Normal Saline 0.9%) 1,000 mls @ 125 mls/hr IV CONT LEWIS Last Admin: 04/27/23 00:17 Dose: 125 mls/hr Documented By: SB Naloxone HCl (Naloxone 0.4 Mg/Ml Vial) 0.2 mg IV Q2MIN PRN PRN Reason: Opiate Reversal Discontinued Medications Sodium Chloride (Normal Saline 0.9%) 1,000 mls @ 1,000 mls/hr IV BOLUS ONE Stop: 04/26/23 23:30 Last Admin: 04/26/23 23:05 Dose: Not Given Documented By: AMIvanna Vancomycin HCl (Vancomycin) 1,000 mg in 200 mls @ 200 mls/hr IV NOW ONE Stop: 04/26/23 23:30 Last Admin: 04/26/23 23:56 Dose: Not Given Documented By: SB Ceftriaxone Sodium 1,000 mg/ (Sodium Chloride) 100 mls @ 200 mls/hr IV NOW ONE Stop: 04/26/23 22:32 Last Infusion: 04/27/23 00:16 Dose: Infused Documented By: Admin: 04/26/23 23:04 Dose: 200 mls/hr Documented By: AMV Vancomycin HCl/Dextrose (Vancomycin) 2,000 mg in 400 mls @ 200 mls/hr IV NOW ONE Stop: 04/27/23 00:52 Last Admin: 04/27/23 00:17 Dose: 200 mls/hr Documented By: RITA Morphine Sulfate (Morphine 4 Mg/Ml Inj) 4 mg IV NOW ONE Stop: 04/27/23 00:30 Last Admin: 04/27/23 00:37 Dose: 2 mg Documented By: RITA Vital Signs Vital signs: Vital Signs - 8 hr 04/26/23 22:27 04/26/23 23:12 04/26/23 23:30 Temperature 98.5 F Pulse Rate 93 H 100 H 101 H Respiratory Rate 20 23 Blood Pressure 146/78 H 145/67 H Pulse Oximetry 97 93 95 Oxygen Delivery Method Room Air 04/26/23 23:48 04/26/23 23:48 04/27/23 00:00 Temperature Pulse Rate 99 H Respiratory Rate Blood Pressure 162/86 H 141/65 H Pulse Oximetry 96 Oxygen Delivery Method 04/27/23 00:00 Temperature Pulse Rate 96 H Respiratory Rate Blood Pressure Pulse Oximetry 96 Oxygen Delivery Method Medical Decision Making Medical Records Medical records reviewed: Yes I reviewed the patient's medical records. Lab Data Lab results reviewed: Yes I reviewed the patient's lab results. 04/26/23 22:30 04/26/23 22:30 Labs: Lab Results 04/26/23 Range/Units 22:30 WBC 13.1 H (4.5-11.0) X10^3/uL RBC 5.17 (4.5-5.9) X10^6/uL Hgb 16.1 (13.5-17.5) g/dL Hct 48.0 (41-53) % MCV 92.9 (80-100) fL MCH 31.1 (26-34) PG MCHC 33.5 (30-36) % RDW 14.6 (11.6-14.8) % Plt Count 239 (150-400) X10^3/uL Neut % (Auto) 87.2 H (50-75) % Lymph % (Auto) 6.7 L (25-40) % [place] % (Auto) 4.3 (3-14) % Eos % (Auto) 1.3 L (2-4) % Baso % (Auto) 0.5 (0-2) % Neut # (Auto) 62658 H (8847-2308) /uL Lymph # (Auto) 900 L (0018-2073) /uL [place] # (Auto) 600 (0-900) /uL Eos # (Auto) 200 (0-450) /uL Baso # (Auto) 100 (0-100) /uL Sodium 133 L (137-145) mmol/L Potassium 4.4 (3.4-5.1) mmol/L Chloride 99 (98-107) mmol/L Carbon Dioxide 29 (22-32) mmol/L BUN 19 (9-20) mg/dL Creatinine 1.02 (0.66-1.25) mg/dL Estimated GFR > 60 (>60) mL/min BUN/Creatinine Ratio 18.6 (6-22) Glucose 142 H (80-110) mg/dL Lactate 2.4 H (0.7-2.1) mmol/L Calcium 8.8 (8.4-10.2) mg/dL Total Bilirubin 0.7 (0.2-1.3) mg/dL AST 23 (17-59) IU/L ALT 32 (<50) IU/L Alkaline Phosphatase 114 (38-126) U/L Total Protein 6.3 (6.3-8.2) g/dL Albumin 3.3 L (3.5-5.0) g/dL Globulin 3.0 (1.7-4.1) g/dL Albumin/Globulin Ratio 1.1 (1.0-2.8) Lipase 264 (23-300) U/L Procalcitonin 0.12 (<0.5) ng/mL [facility] Narrative Medical decision making narrative: Patient has history and physical exam that is consistent with cellulitis to his left lower extremity. Was febrile earlier today. Tachycardic. Not hypotensive. Alert and oriented x3. Blood cultures obtained. Antibiotics started here in the ER. Have an obvious source of infections will hold on a chest x-ray and urinalysis for now. Fluids administered. Given his other medical issues will admit for IV antibiotics. Discussed the case with hospitalist on-call. Patient expressed understanding and agreement with the plan. Discharge Plan Departure Patient Disposition: Admitted As Inpatient Clinical Impression: Cellulitis Admit Date/Time: 04/27/23 00:18 Admit Provider: Pradeep Lewis
--- NOTE | 2023-04-26 22:35 | PC.NURSE ---
Lab called and coming to draw 2nd set of BC
[2023-04-26 22:50] LABS: Add Manual Diff / Slide Review NO; Basophils Absolute Auto 100 /uL (0-100); Basophils Percent Auto 0.5 % (0-2); Eosinophils Absolute Auto 200 /uL (0-450); Eosinophils Percent Auto 1.3 % (2-4); Hemoglobin 16.1 g/dL (13.5-17.5); Lymphocytes Absolute Auto 900 /uL (1100-4500); Lymphocytes Percent Auto 6.7 % (25-40); Mean Corpuscular HGB Conc 33.5 % (30-36); Mean Corpuscular Hemoglobin 31.1 PG (26-34); Mean Corpuscular Volume 92.9 fL (80-100); Monocytes Absolute Auto 600 /uL (0-900); Monocytes Percent Auto 4.3 % (3-14); Neutrophils Absolute Auto 11400 /uL (1500-7000); Neutrophils Percent Auto 87.2 % (50-75); Platelet Count 239 X10^3/uL (150-400); Red Blood Cell Count 5.17 X10^6/uL (4.5-5.9); Red Cell Distribution Width 14.6 % (11.6-14.8); White Blood Cell Count 13.1 X10^3/uL (4.5-11.0)
[2023-04-26 22:55] LABS: Alanine Aminotransferase 32 IU/L (<50); Albumin 3.3 g/dL (3.5-5.0); Albumin Globulin Ratio 1.1 (1.0-2.8); Alkaline Phosphatase 114 U/L (38-126); Aspartate Aminotransferase 23 IU/L (17-59); BUN Creatinine Ratio 18.6 (6-22); Bilirubin Total 0.7 mg/dL (0.2-1.3); Blood Urea Nitrogen 19 mg/dL (9-20); Calcium 8.8 mg/dL (8.4-10.2); Carbon Dioxide 29 mmol/L (22-32); Chloride 99 mmol/L (98-107); Estimated Glomerular Filt Rate > 60 mL/min (>60); Glucose 142 mg/dL (80-110); HEMOLYSIS 28 (0-50); Lactate (Lactic Acid) 2.4 mmol/L (0.7-2.1); Lipase 264 U/L (23-300); Potassium 4.4 mmol/L (3.4-5.1); Sodium 133 mmol/L (137-145); Total Protein 6.3 g/dL (6.3-8.2)
[2023-04-26] MEDS: cefTRIAXone 1,000 MG in SODIUM CHLORIDE 0.9% 100 ML 200 MG IV (23:04)
[2023-04-26 23:11] LABS: Procalcitonin 0.12 ng/mL (<0.5)
[2023-04-26 23:12] VITALS: BP 145/67; PULSE 100; O2SAT 93
[2023-04-26 23:30] VITALS: PULSE 101; RESP 23; O2SAT 95
[2023-04-26 23:48] VITALS: BP 162/86; PULSE 99; O2SAT 96
[2023-04-27] VITALS (7 sets, daily range): BP systolic 107–150; BP diastolic 57–77; PULSE 83–104; RESP 16–18; TEMP 36.4–38.2; O2SAT 94–97; BMI 37.3
[2023-04-27 00:17] LABS: Reflexed Lactate in 2 Hours Y
[2023-04-27] MEDS: VANCOMYCIN 2,000 MG/400 ML PIGGYBACK 200 MG IV (00:17)
[2023-04-27] MEDS: SODIUM CHLORIDE 0.9% 1,000 ML 125 ML IV (00:17)
[2023-04-27] MEDS: MORPHINE 4 MG/ML INJ IV (00:37)
[2023-04-27 01:06] LABS: Lactate 2HR (Lactic Acid Rflx) 1.4 mmol/L (0.7-2.1)
[2023-04-27] MEDS: LEVOTHYROXINE 112 MCG TABLET PO (06:38)
--- NOTE | 2023-04-27 06:51 | PM.HP.1 ---
History of Present Illness History of Present Illness Date Patient Seen: 04/27/23 Chief complaint: Left leg issues, very painful, Fever 101F chills Narrative: 78 y/o presented to ED with swollen, tender and erythematous Lt lower leg. It started a day earlier as a small area of redness on the top of the foot and quickly spread up. Given Vancomycin and Rocephin in ED. He had some chills and low grade fever at home. Vitals stable in the ED. [facility] Medical History (Updated 04/27/23 @ 07:09 by Pradeep Rea MD) VTE (venous thromboembolism) Diabetes Family history of abdominal aortic aneurysm (AAA) (08/06/14) Hypothyroidism Hypertension Hyperlipidemia Gout Adenomatous polyp of colon Social History household members: spouse Smoking Status: Never smoker Meds Home Medications and Allergies Home Medications Medication Instructions Recorded Confirmed Type levothyroxine 112 mcg tablet 112 mcg PO QAM ##0 09/07/17 04/27/23 History (Synthroid) furosemide 20 mg tablet (Lasix) 20 mg PO DAILY #20 tabs 12/09/22 04/27/23 Rx amlodipine 5 mg tablet 10 mg PO DAILY 04/27/23 04/27/23 History apixaban 5 mg tablet (Eliquis) 5 mg PO BID 04/27/23 04/27/23 History capmatinib 200 mg tablet (Tabrecta) 400 mg PO BID 04/27/23 04/27/23 History colchicine 0.6 mg tablet 0.6 mg PO PRN PRN Gout 04/27/23 04/27/23 History metformin 500 mg tablet 500 mg PO DAILY 04/27/23 04/27/23 History Allergies Allergy/AdvReac Type Severity Reaction Status Date / Time Quinolones AdvReac Rash Verified 12/09/22 08:18 Review of Systems Constitutional Comments: fever and chills Cardiovascular Comments: w/o chest pain or palpitations Respiratory Comments: baseline, chronic shortness of breath Gastrointestinal Comments: w/o N/V/diarrhea/constipation Genitourinary Comments: w/o dysuria Endocrine Comments: w/o polyuria or polydipsia Exam Vital Signs (past 8 hours): - 04/26/23 23:12 04/26/23 23:30 04/26/23 23:48 Temperature Pulse Rate 100 H 101 H Respiratory Rate 23 Blood Pressure 145/67 H 162/86 H Pulse Oximetry 93 95 Oxygen Delivery Method Oxygen Flow Rate 04/26/23 23:48 04/27/23 00:00 04/27/23 00:00 Temperature Pulse Rate 99 H 96 H Respiratory Rate Blood Pressure 141/65 H Pulse Oximetry 96 96 Oxygen Delivery Method Oxygen Flow Rate 04/27/23 00:30 04/27/23 00:30 04/27/23 01:33 Temperature 100.8 F H Pulse Rate 99 H 104 H Respiratory Rate 18 16 Blood Pressure 107/57 L 125/72 Pulse Oximetry 94 97 Oxygen Delivery Method Room Air Oxygen Flow Rate 0 04/27/23 04:34 Temperature 98.3 F Pulse Rate 100 H Respiratory Rate 18 Blood Pressure 150/77 H Pulse Oximetry 94 Oxygen Delivery Method Oxygen Flow Rate 0 Oxygen Delivery Method Room Air Oxygen Flow Rate 0 Const Other: Sitting in bed in no distress, at bedside HENMT Other: normocephalic Eyes Other: elena, eomi Neck Other: w/o swelling Resp Other: normal respiratory effort Cardio Other: RRR GI Other: not distended Skin Other: erythema - LLE Neuro Other: w/o deficits Extrem Other: LLE swollen Psych Other: appropriate mood, lucid Objective Labs 04/26/23 22:30 04/26/23 22:30 Labs: Laboratory Results - last 24 hr 04/26/23 04/27/23 22:30 00:49 WBC 13.1 H RBC 5.17 Hgb 16.1 Hct 48.0 MCV 92.9 MCH 31.1 MCHC 33.5 RDW 14.6 Plt Count 239 Neut % (Auto) 87.2 H Lymph % (Auto) 6.7 L [place] % (Auto) 4.3 Eos % (Auto) 1.3 L Baso % (Auto) 0.5 Neut # (Auto) 84097 H Lymph # (Auto) 900 L [place] # (Auto) 600 Eos # (Auto) 200 Baso # (Auto) 100 Sodium 133 L Potassium 4.4 Chloride 99 Carbon Dioxide 29 BUN 19 Creatinine 1.02 Estimated GFR > 60 BUN/Creatinine Ratio 18.6 Glucose 142 H Lactate 2.4 H 1.4 Calcium 8.8 Total Bilirubin 0.7 AST 23 ALT 32 Alkaline Phosphatase 114 Total Protein 6.3 Albumin 3.3 L Globulin 3.0 Albumin/Globulin Ratio 1.1 Lipase 264 Procalcitonin 0.12 Assessment & Plan Assessment and plan (1) Cellulitis of left lower leg: Status: Acute Plan: Likely strep considering rapid spread. Ancef. Not septic. Had similar episode several months ago, he was hospitalized in [place] for a few days. (2) Adenocarcinoma of lung, stage 4: Status: Acute Plan: Getting oncology care at the [facility], on Tabrecta (3) Hypothyroidism: Status: None Plan: Synthroid 112 mcg daily (4) Hypertension: Status: None Plan: Norvasc 10 mg daily, Lasix 20 mg daily (5) Diabetes: Status: Acute Plan: Metformin, SS (6) VTE (venous thromboembolism): Status: Acute Plan: He had superficial thrombophlebitis, possibly small clots in PA vs embolized glue from Rt hip replacement??? On Eliquis 5 mg bid for some time now due to hypercoagulablity with cancer
[2023-04-27 08:11] LABS: Add Manual Diff / Slide Review NO; Basophils Absolute Auto 0 /uL (0-100); Basophils Percent Auto 0.3 % (0-2); Eosinophils Absolute Auto 0 /uL (0-450); Eosinophils Percent Auto 0.1 % (2-4); Hematocrit 43.1 % (41-53); Hemoglobin 14.4 g/dL (13.5-17.5); Lymphocytes Absolute Auto 700 /uL (1100-4500); Lymphocytes Percent Auto 4.4 % (25-40); Mean Corpuscular HGB Conc 33.4 % (30-36); Monocytes Absolute Auto 500 /uL (0-900); Monocytes Percent Auto 3.2 % (3-14); Neutrophils Absolute Auto 15100 /uL (1500-7000); Platelet Count 193 X10^3/uL (150-400); Red Blood Cell Count 4.64 X10^6/uL (4.5-5.9); Red Cell Distribution Width 14.6 % (11.6-14.8); White Blood Cell Count 16.4 X10^3/uL (4.5-11.0)
[2023-04-27] MEDS: AMLODIPINE 5 MG TABLET 10 MG PO (08:22)
[2023-04-27] MEDS: FUROSEMIDE 20 MG TABLET PO (08:22)
[2023-04-27] MEDS: CEFAZOLIN VIAL 1 GM in SODIUM CHLORIDE 0.9% 100 ML IV (08:22)
[2023-04-27] MEDS: APIXABAN 5 MG TABLET PO ×2 (08:22→21:50)
[2023-04-27] MEDS: METFORMIN HCL 500 MG TABLET PO ×2 (08:22→17:33)
[2023-04-27 08:29] LABS: Blood Urea Nitrogen 15 mg/dL (9-20); Calcium 8.3 mg/dL (8.4-10.2); Carbon Dioxide 26 mmol/L (22-32); Chloride 101 mmol/L (98-107); Estimated Glomerular Filt Rate > 60 mL/min (>60); Glucose 199 mg/dL (80-110); HEMOLYSIS < 15 (0-50); Potassium 3.9 mmol/L (3.4-5.1); Sodium 131 mmol/L (137-145)
[2023-04-27] MEDS: cefTRIAXone 2,000 MG in SODIUM CHLORIDE 0.9% 100 ML 200 MG IV (10:13)
[2023-04-27] MEDS: HYDROCODONE/ACET 5/325 TABLET 1 TAB PO ×2 (10:14→21:50)
--- NOTE | 2023-04-27 10:55 | P.HP_ITS ---
History of Present Illness History of Present Illness Date Patient Seen: 04/27/23 Chief complaint: Left leg issues, very painful, Fever 101F chills Narrative: 78 y/o presented to ED with swollen, tender and erythematous Lt lower leg. It started a day earlier as a small area of redness on the top of the foot and quickly spread up. Given Vancomycin and Rocephin in ED. He had some chills and low grade fever at home. Vitals stable in the ED. [facility] Medical History (Updated 04/27/23 @ 07:09 by Pradeep Rea MD) VTE (venous thromboembolism) Diabetes Family history of abdominal aortic aneurysm (AAA) (08/06/14) Hypothyroidism Hypertension Hyperlipidemia Gout Adenomatous polyp of colon Social History household members: spouse Smoking Status: Never smoker Meds Home Medications and Allergies Home Medications Medication Instructions Recorded Confirmed Type levothyroxine 112 mcg tablet 112 mcg PO QAM ##0 09/07/17 04/27/23 History (Synthroid) furosemide 20 mg tablet (Lasix) 20 mg PO DAILY #20 tabs 12/09/22 04/27/23 Rx amlodipine 5 mg tablet 10 mg PO DAILY 04/27/23 04/27/23 History apixaban 5 mg tablet (Eliquis) 5 mg PO BID 04/27/23 04/27/23 History capmatinib 200 mg tablet (Tabrecta) 400 mg PO BID 04/27/23 04/27/23 History colchicine 0.6 mg tablet 0.6 mg PO PRN PRN Gout 04/27/23 04/27/23 History metformin 500 mg tablet 500 mg PO DAILY 04/27/23 04/27/23 History Allergies Allergy/AdvReac Type Severity Reaction Status Date / Time Quinolones AdvReac Rash Verified 12/09/22 08:18 Review of Systems Constitutional Comments: fever and chills Cardiovascular Comments: w/o chest pain or palpitations Respiratory Comments: baseline, chronic shortness of breath Gastrointestinal Comments: w/o N/V/diarrhea/constipation Genitourinary Comments: w/o dysuria Endocrine Comments: w/o polyuria or polydipsia Exam Vital Signs (past 8 hours): - 04/27/23 04:34 04/27/23 08:00 Temperature 98.3 F 97.8 F Pulse Rate 100 H 99 H Respiratory Rate 18 16 Blood Pressure 150/77 H 140/59 L Pulse Oximetry 94 95 Oxygen Flow Rate 0 0 Oxygen Delivery Method Room Air Oxygen Flow Rate 0 Const Other: Sitting in bed in no distress, at bedside JENNIFER Other: normocephalic Eyes Other: elena, eomi Neck Other: w/o swelling Resp Other: normal respiratory effort Cardio Other: RRR GI Other: not distended Skin Other: erythema - LLE Neuro Other: w/o deficits Extrem Other: LLE swollen from toes to thigh, with erythema most pronounced at dorsal foot, ankle, calf and medial thigh. No fluctuance or drainage. Psych Other: appropriate mood, lucid Objective Labs 04/27/23 07:40 04/27/23 07:40 Labs: Laboratory Results - last 24 hr 04/26/23 04/27/23 04/27/23 22:30 00:49 07:40 WBC 13.1 H 16.4 H RBC 5.17 4.64 Hgb 16.1 14.4 Hct 48.0 43.1 MCV 92.9 93.0 MCH 31.1 31.0 MCHC 33.5 33.4 RDW 14.6 14.6 Plt Count 239 193 Neut % (Auto) 87.2 H 92.0 H Lymph % (Auto) 6.7 L 4.4 L [place] % (Auto) 4.3 3.2 Eos % (Auto) 1.3 L 0.1 L Baso % (Auto) 0.5 0.3 Neut # (Auto) 53583 H 54805 H Lymph # (Auto) 900 L 700 L [place] # (Auto) 600 500 Eos # (Auto) 200 0 Baso # (Auto) 100 0 Sodium 133 L 131 L Potassium 4.4 3.9 Chloride 99 101 Carbon Dioxide 29 26 BUN 19 15 Creatinine 1.02 1.00 Estimated GFR > 60 > 60 BUN/Creatinine Ratio 18.6 15.0 Glucose 142 H 199 H Lactate 2.4 H 1.4 Calcium 8.8 8.3 L Total Bilirubin 0.7 AST 23 ALT 32 Alkaline Phosphatase 114 Total Protein 6.3 Albumin 3.3 L Globulin 3.0 Albumin/Globulin Ratio 1.1 Lipase 264 Procalcitonin 0.12 Assessment & Plan Assessment and plan (1) Cellulitis of left lower leg: Status: Acute Plan: Likely strep considering rapid spread. continue vanc and rocephin Had similar episode several months ago, he was hospitalized in [place] for a few days. on eliquis so will defer DVT US (2) Adenocarcinoma of lung, stage 4: Status: Acute Plan: Getting oncology care at the [facility], on Tabrecta which is shrinking the tumor (3) Hypothyroidism: Status: None Plan: Synthroid 112 mcg daily (4) Hypertension: Status: None Plan: Norvasc 10 mg daily, Lasix 20 mg daily (5) Diabetes: Status: Acute Plan: Metformin, SS (6) VTE (venous thromboembolism): Status: Acute Plan: He had superficial thrombophlebitis, possibly small clots in PA vs embolized glue from Rt hip replacement??? On Eliquis 5 mg bid for some time now due to hypercoagulablity with cancer Plan Dispo: 2 days for improvement of cellulitis.
[2023-04-27] MEDS: VANCOMYCIN 1,250 MG/250 ML PIGGYBACK 250 MG IV ×2 (12:41→23:18)
--- NOTE | 2023-04-27 14:07 | CM.DANOTE ---
Reviewed EMR for pt's medical status and initial anticipated d/c needs. Met with pt and significant other to introduce self and role. Pt was found to be alert, oriented, able to make needs known. Payor: Medicare PCP: Dr. Conteh Pt is a 78 year-old M who presented to the ED on 04/26/23 with day-2 of what started out as redness on the top of his left foot, and now has travelled up to his inner thigh. Pt has a medical hx of metastatic lung cancer, receives his chemo/immunotherapy tx in [place], where he splits his time living. He was started on IV ABO's and fluids in the ED, and then admitted for continued course of IV ABO's. DCP will continue to monitor for d/c recommendations for therapies or continued OP ABO's. Per Dr. Cobian, pt here likely 2-more days to complete the antibiotic course. Discharge Planning/Care Management Advanced directive, confirm from FAMILY Start: 04/27/23 01:44 Freq: Q24H Status: Active Protocol: Document 04/27/23 01:44 AGW (Rec: 04/27/23 02:05 AGW [id number]) Advance Directive, confirm on record Time 02:00 Person contacted patient Copy received No CM Discharge Assessment Start: 04/27/23 14:05 Freq: Status: Active Protocol: Document 04/27/23 14:05 DPL (Rec: 04/27/23 14:07 DPL [id number]) Discharge Planning Assessment Assigned Coding Quality Analyst HUMZA Lopez Advance Directives? Yes Advance Directives on File No: currently in [place] History Provided By Patient,Significant Other, Medical Record Has Patient been admitted in last 30 No days? Prior Living Arrangements House Household Members significant other Type of transporation used prior to Drives own vehicle admit Independent with ADL's Yes Is patient alert and oriented? Yes Caregiver for Another No Comment Pending PT/OT recommendations, as well as d/c plan for antibiotics. Referrals Initiated None needed Additional Comment Continue to monitor for evolving needs/recommendations . Whiteboard Updated in Patient Room with Yes name and ext. # of Coding Quality Analyst Review Status In Process Please Provide Date Initial DC 04/27/23 Assessment Was Performed
--- NOTE | 2023-04-27 14:22 | PC.NURSE ---
Patient has been alert and oriented x4 today. He is up with sba and walker, he has also gone to the bathroom independently and does well on days. The cellulitis on his l.salgado is red, warm, and swollen. Given one vicodin for pain and discomfort this morning and this was effective for pain control.
[2023-04-27 22:17] LABS: MRSA (Nasal) PCR Not Detected (Not Detect)
[2023-04-28 05:31] VITALS: BP 110/63; PULSE 83; RESP 18; TEMP 36.1; O2SAT 97
[2023-04-28] MEDS: LEVOTHYROXINE 112 MCG TABLET PO (06:03)
[2023-04-28 06:50] LABS: Add Manual Diff / Slide Review NO; Basophils Absolute Auto 100 /uL (0-100); Basophils Percent Auto 0.5 % (0-2); Eosinophils Absolute Auto 100 /uL (0-450); Eosinophils Percent Auto 0.8 % (2-4); Hematocrit 41.3 % (41-53); Lymphocytes Absolute Auto 900 /uL (1100-4500); Lymphocytes Percent Auto 9.5 % (25-40); Mean Corpuscular HGB Conc 33.9 % (30-36); Mean Corpuscular Hemoglobin 31.2 PG (26-34); Mean Corpuscular Volume 91.9 fL (80-100); Monocytes Absolute Auto 600 /uL (0-900); Monocytes Percent Auto 6.6 % (3-14); Neutrophils Absolute Auto 8100 /uL (1500-7000); Neutrophils Percent Auto 82.6 % (50-75); Platelet Count 194 X10^3/uL (150-400); Red Cell Distribution Width 14.5 % (11.6-14.8); White Blood Cell Count 9.9 X10^3/uL (4.5-11.0)
[2023-04-28 07:14] LABS: BUN Creatinine Ratio 13.8 (6-22); Blood Urea Nitrogen 13 mg/dL (9-20); Calcium 8.6 mg/dL (8.4-10.2); Carbon Dioxide 30 mmol/L (22-32); Chloride 102 mmol/L (98-107); Estimated Glomerular Filt Rate > 60 mL/min (>60); Glucose 133 mg/dL (80-110); HEMOLYSIS < 15 (0-50); Potassium 4.1 mmol/L (3.4-5.1); Sodium 134 mmol/L (137-145)
[2023-04-28] MEDS: FUROSEMIDE 20 MG TABLET PO (08:10)
[2023-04-28] MEDS: METFORMIN HCL 500 MG TABLET PO ×2 (08:10→18:39)
[2023-04-28] MEDS: AMLODIPINE 5 MG TABLET 10 MG PO (08:10)
[2023-04-28] MEDS: APIXABAN 5 MG TABLET PO ×2 (08:10→20:36)
[2023-04-28] MEDS: cefTRIAXone 2,000 MG in SODIUM CHLORIDE 0.9% 100 ML 200 MG IV (08:10)
[2023-04-28 08:38] VITALS: BP 102/53; PULSE 83; RESP 18; TEMP 36.8; O2SAT 95
--- NOTE | 2023-04-28 11:49 | CM.DPC ---
DCP Cont. Reviewed EMR and team rounds for status updates. Pt continues to improve w/mobility and SBA with getting to the bathroom. Per Dr. Cobian, pt will likely d/c on tomorrow, 04/29/23. DCP will continue to monitor for evolving needs/therapy recommendations for d/c.
--- NOTE | 2023-04-28 12:16 | DI.US.S_ITS ---
PROCEDURE: US PERIP VENOUS LOW EXTREM BI INDICATIONS: r/o DVT TECHNIQUE: Real-time imaging, as well as color and pulse Doppler interrogation, were performed of the deep veins of both legs from the inguinal ligament to the popliteal fossa, with documentation of the visualized calf veins. COMPARISON: [facility], , US [facility] VENOUS LOW EXTREM BI, 12/09/2022, 9:44. FINDINGS: Right: The common femoral, femoral, popliteal, and the visualized calf veins are normally compressible, and free of intraluminal thrombus. Color and pulse Doppler demonstrate normal phasic intravascular flow. There is normal augmentation response to distal compression maneuver. Left: The common femoral, femoral, popliteal, and the visualized calf veins are normally compressible, and free of intraluminal thrombus. Color and pulse Doppler demonstrate normal phasic intravascular flow. There is normal augmentation response to distal compression maneuver. IMPRESSION: No findings of deep venous thrombosis in either lower extremity. Dictated by: Andrew Rodriguez M.D. on 04/28/2023 at 12:31 Approved by: Andrew Rodriguez M.D. on 04/28/2023 at 12:32
[2023-04-28 12:27] LABS: Vancomycin Trough 9.2 ug/mL (10-20)
[2023-04-28 12:30] VITALS: BP 119/63; PULSE 82; RESP 18; TEMP 36.9; O2SAT 95
[2023-04-28] MEDS: FUROSEMIDE 40 MG/4 ML VIAL IV (13:58)
[2023-04-28] MEDS: VANCOMYCIN 1,500 MG/300 ML PIGGYBACK 250 MG IV (13:59)
--- NOTE | 2023-04-28 13:59 | P.PN_ITS ---
Subjective Subjective Interval history: Patient's erythema improved but bilateral swelling with increased edema. DVT US ordered. Exam Vital Signs (past 8 hours): - 04/28/23 08:00 04/28/23 08:38 04/28/23 12:30 Temperature 98.2 F 98.4 F Pulse Rate 83 82 Respiratory Rate 18 18 Blood Pressure 102/53 L 119/63 Pulse Oximetry 95 95 Oxygen Delivery Method Room Air Oxygen Flow Rate 0 0 Oxygen Delivery Method Room Air Oxygen Flow Rate 0 Const Other: Sitting in bed in no distress HENMT Other: normocephalic Eyes Other: elena, eomi Neck Other: w/o swelling Resp Other: normal respiratory effort Cardio Other: RRR GI Other: not distended Skin Other: erythema - LLE Neuro Other: w/o deficits Extrem Other: LLE swollen from toes to thigh, with erythema most pronounced at dorsal foot, ankle, calf and medial thigh. No fluctuance or drainage. 2+ edema of bilateral legs to knees. Psych Other: appropriate mood, lucid Objective Labs 04/28/23 06:00 04/28/23 06:00 Labs: Laboratory Results - last 24 hr 04/27/23 04/28/23 04/28/23 20:25 06:00 11:50 WBC 9.9 RBC 4.50 Hgb 14.0 Hct 41.3 MCV 91.9 MCH 31.2 MCHC 33.9 RDW 14.5 Plt Count 194 Neut % (Auto) 82.6 H Lymph % (Auto) 9.5 L [place] % (Auto) 6.6 Eos % (Auto) 0.8 L Baso % (Auto) 0.5 Neut # (Auto) 8100 H Lymph # (Auto) 900 L [place] # (Auto) 600 Eos # (Auto) 100 Baso # (Auto) 100 Sodium 134 L Potassium 4.1 Chloride 102 Carbon Dioxide 30 BUN 13 Creatinine 0.94 Estimated GFR > 60 BUN/Creatinine Ratio 13.8 Glucose 133 H Calcium 8.6 Nasal Screen MRSA (PCR) Not detected Vancomycin Trough 9.2 L PFSH Medical History (Updated 04/28/23 @ 14:03 by Juan Luis Cobian DO) VTE (venous thromboembolism) Diabetes Family history of abdominal aortic aneurysm (AAA) (08/06/14) Hypothyroidism Hypertension Hyperlipidemia Gout Adenomatous polyp of colon Social History household members: significant other Smoking Status: Never smoker Assessment & Plan Assessment and plan (1) Cellulitis of left lower leg: Status: Acute Plan: Likely strep considering rapid spread. continue vanc and rocephin Had similar episode several months ago, he was hospitalized in [place] for a few days. DVT US of bilateral LE negative Cellulitis now improving (2) Adenocarcinoma of lung, stage 4: Status: Acute Plan: Getting oncology care at the [facility], on Tabrecta which is shrinking the tumor (3) Hypothyroidism: Status: None Plan: Synthroid 112 mcg daily (4) Hypertension: Status: None Plan: Norvasc 10 mg daily, Lasix 20 mg daily (5) Diabetes: Status: Acute Plan: Metformin, SS (6) VTE (venous thromboembolism): Status: Acute Plan: H/o DVT On Eliquis 5 mg bid for some time now due to hypercoagulablity with cancer Repeat DVT US negative of bilateral legs (7) Edema: Status: Acute Plan: worsened 2-3+ edema of ankles to knee's, likely from piggyback IVF with abx and received fluids in ED start lasix 40mg IV daily Plan Dispo: 1-2 days for improvement of cellulitis and edema.
[2023-04-28 18:00] VITALS: BP 109/57; PULSE 87; RESP 18; TEMP 36.2; O2SAT 97
[2023-04-28] MEDS: VANCOMYCIN 1,000 MG/200 ML PIGGYBACK 200 MG IV (20:36)
[2023-04-29] VITALS (7 sets, daily range): BP systolic 96–119; BP diastolic 50–80; PULSE 67–118; RESP 16–17; TEMP 35.9–37.1; O2SAT 95–99
[2023-04-29] MEDS: LEVOTHYROXINE 112 MCG TABLET PO (05:14)
[2023-04-29] MEDS: VANCOMYCIN 1,000 MG/200 ML PIGGYBACK 200 MG IV ×2 (05:14→12:50)
[2023-04-29 05:35] LABS: Add Manual Diff / Slide Review NO; Basophils Absolute Auto 100 /uL (0-100); Basophils Percent Auto 0.6 % (0-2); Eosinophils Absolute Auto 100 /uL (0-450); Eosinophils Percent Auto 1.6 % (2-4); Hematocrit 44.4 % (41-53); Lymphocytes Absolute Auto 1300 /uL (1100-4500); Lymphocytes Percent Auto 14.8 % (25-40); Mean Corpuscular HGB Conc 33.9 % (30-36); Mean Corpuscular Hemoglobin 31.2 PG (26-34); Mean Corpuscular Volume 92.2 fL (80-100); Monocytes Absolute Auto 600 /uL (0-900); Monocytes Percent Auto 6.9 % (3-14); Neutrophils Absolute Auto 6800 /uL (1500-7000); Neutrophils Percent Auto 76.1 % (50-75); Platelet Count 219 X10^3/uL (150-400); Red Blood Cell Count 4.81 X10^6/uL (4.5-5.9); Red Cell Distribution Width 14.7 % (11.6-14.8); White Blood Cell Count 8.9 X10^3/uL (4.5-11.0)
[2023-04-29 05:41] LABS: BUN Creatinine Ratio 14.7 (6-22); Blood Urea Nitrogen 14 mg/dL (9-20); Calcium 8.5 mg/dL (8.4-10.2); Carbon Dioxide 30 mmol/L (22-32); Chloride 102 mmol/L (98-107); Estimated Glomerular Filt Rate > 60 mL/min (>60); Glucose 154 mg/dL (80-110); HEMOLYSIS < 15 (0-50); Potassium 3.5 mmol/L (3.4-5.1); Sodium 137 mmol/L (137-145)
[2023-04-29] MEDS: AMLODIPINE 5 MG TABLET 10 MG PO (08:59)
[2023-04-29] MEDS: FUROSEMIDE 40 MG/4 ML VIAL IV ×2 (09:00→13:52)
[2023-04-29] MEDS: cefTRIAXone 2,000 MG in SODIUM CHLORIDE 0.9% 100 ML 200 MG IV (09:00)
[2023-04-29] MEDS: METFORMIN HCL 500 MG TABLET PO ×2 (09:00→17:29)
[2023-04-29] MEDS: APIXABAN 5 MG TABLET PO ×2 (09:00→21:35)
[2023-04-29] MEDS: BISMUTH SUBSALICYLATE 525 MG/30 ML SUSP PO ×2 (12:49→21:36)
[2023-04-29] MEDS: POTASSIUM CHLORIDE 20 MEQ TAB 40 MEQ PO (12:50)
--- NOTE | 2023-04-29 14:34 | PM.PN.1 ---
Subjective Subjective Interval history: Patient's leg edema much improved today. He had an episode of diarrhea and is worried he has C. diff. Wants his stool tested since he has a history of C. diff in the past. Exam Vital Signs (past 8 hours): - 04/29/23 06:57 04/29/23 08:00 Temperature 97.8 F 97.4 F L Pulse Rate 77 67 Respiratory Rate 17 16 Blood Pressure 119/50 L 110/65 Pulse Oximetry 99 98 Oxygen Flow Rate 0 0 Oxygen Delivery Method Room Air Oxygen Flow Rate 0 Const Other: Sitting in bed in no distress HENMT Other: normocephalic Eyes Other: elena, eomi Neck Other: w/o swelling Resp Other: normal respiratory effort Cardio Other: RRR GI Other: not distended Skin Other: erythema - LLE Neuro Other: w/o deficits Extrem Other: LLE swollen from toes to thigh, with erythema most pronounced at dorsal foot, ankle, calf and medial thigh has now improved. No fluctuance or drainage. 1-2+ edema of bilateral legs to knees has improved. Psych Other: appropriate mood, lucid Objective Labs 04/29/23 05:15 04/29/23 05:15 Labs: Laboratory Results - last 24 hr 04/29/23 05:15 WBC 8.9 RBC 4.81 Hgb 15.0 Hct 44.4 MCV 92.2 MCH 31.2 MCHC 33.9 RDW 14.7 Plt Count 219 Neut % (Auto) 76.1 H Lymph % (Auto) 14.8 L [place] % (Auto) 6.9 Eos % (Auto) 1.6 L Baso % (Auto) 0.6 Neut # (Auto) 6800 Lymph # (Auto) 1300 [place] # (Auto) 600 Eos # (Auto) 100 Baso # (Auto) 100 Sodium 137 Potassium 3.5 Chloride 102 Carbon Dioxide 30 BUN 14 Creatinine 0.95 Estimated GFR > 60 BUN/Creatinine Ratio 14.7 Glucose 154 H Calcium 8.5 PFSH Medical History (Updated 04/29/23 @ 14:40 by Juan Luis Cobian DO) VTE (venous thromboembolism) Diabetes Family history of abdominal aortic aneurysm (AAA) (08/06/14) Hypothyroidism Hypertension Hyperlipidemia Gout Adenomatous polyp of colon Social History household members: significant other Smoking Status: Never smoker Assessment & Plan Assessment and plan (1) Cellulitis of left lower leg: Status: Acute Plan: Likely strep considering rapid spread. continue vanc and rocephin Had similar episode several months ago, he was hospitalized in [place] for a few days. DVT US of bilateral LE negative Cellulitis now improving When ready can dc on cefadroxil po (2) Adenocarcinoma of lung, stage 4: Status: Acute Plan: Getting oncology care at the [facility], on Tabrecta which is shrinking the tumor (3) Hypothyroidism: Status: None Plan: Synthroid 112 mcg daily (4) Hypertension: Status: None Plan: Norvasc 10 mg daily, Lasix 20 mg daily (5) Diabetes: Status: Acute Plan: Metformin, SS (6) VTE (venous thromboembolism): Status: Acute Plan: H/o DVT On Eliquis 5 mg bid for some time now due to hypercoagulablity with cancer Repeat DVT US negative of bilateral legs (7) Edema: Status: Acute Plan: worsened 2-3+ edema of ankles to knee's, likely from piggyback IVF with abx and received fluids in ED start lasix 40mg IV BID LE edema much improved (8) Diarrhea: Status: Acute Plan: check D. ciff, patient has h/o of it Plan Dispo: Likely home on 04/30.
--- NOTE | 2023-04-29 16:30 | PC.NURSE ---
Addendum entered by Evon Garcia R.N. 04/29/23 18:56: Patient stated more diarrhea and PCR C-diff came back positive. Now on enteric precautions and PO vancomyacin. Original Note: Patient reported liquid diarrhea x 2 this shift. He states history of c-diff after IV antibiotics in the past. Stool sample collected and sent to lab. Currently pending result. PO Pepto-Bismol ordered. Patient denies pain. BG at lunch 218. Patient refused insulin. BG prior to dinner 130. Education given re: carb/sugar content in cranberry juice. Patient states he knows this and hasn't found that it affects his BGs much. MD Cobian aware. Will continue to monitor.
[2023-04-29 16:35] LABS: Clostridium Difficile Tox PCR Positive for C. diff (Negative)
[2023-04-29] MEDS: VANCOMYCIN 125 MG CAPSULE PO (18:23)
[2023-04-29] MEDS: DOXYCYCLINE HYCLATE 100 MG TABLET PO (21:35)
[2023-04-30] VITALS (10 sets, daily range): BP systolic 94–138; BP diastolic 56–82; PULSE 74–155; RESP 14–20; TEMP 35.9–36.6; O2SAT 95–100
[2023-04-30] MEDS: VANCOMYCIN 125 MG CAPSULE PO ×4 (00:44→17:19)
[2023-04-30] MEDS: dilTIAZem 5 MG/ML SDV 10 MG IV ×2 (02:27→05:15)
[2023-04-30] MEDS: METOPROLOL IR 25 MG TABLET PO ×2 (05:14→10:31)
[2023-04-30] MEDS: LEVOTHYROXINE 112 MCG TABLET PO (05:18)
[2023-04-30 05:52] LABS: Add Manual Diff / Slide Review NO; Basophils Absolute Auto 100 /uL (0-100); Basophils Percent Auto 1.1 % (0-2); Eosinophils Absolute Auto 200 /uL (0-450); Eosinophils Percent Auto 2.3 % (2-4); Hematocrit 44.1 % (41-53); Lymphocytes Absolute Auto 1800 /uL (1100-4500); Lymphocytes Percent Auto 24.4 % (25-40); Mean Corpuscular HGB Conc 33.9 % (30-36); Mean Corpuscular Hemoglobin 30.8 PG (26-34); Mean Corpuscular Volume 90.8 fL (80-100); Monocytes Absolute Auto 600 /uL (0-900); Monocytes Percent Auto 8.4 % (3-14); Neutrophils Absolute Auto 4600 /uL (1500-7000); Neutrophils Percent Auto 63.8 % (50-75); Platelet Count 238 X10^3/uL (150-400); Red Blood Cell Count 4.86 X10^6/uL (4.5-5.9); Red Cell Distribution Width 14.3 % (11.6-14.8); White Blood Cell Count 7.3 X10^3/uL (4.5-11.0)
[2023-04-30 05:57] LABS: BUN Creatinine Ratio 17.3 (6-22); Blood Urea Nitrogen 17 mg/dL (9-20); Calcium 8.6 mg/dL (8.4-10.2); Carbon Dioxide 28 mmol/L (22-32); Chloride 103 mmol/L (98-107); Estimated Glomerular Filt Rate > 60 mL/min (>60); Glucose 132 mg/dL (80-110); HEMOLYSIS 15 (0-50); Potassium 3.5 mmol/L (3.4-5.1); Sodium 135 mmol/L (137-145)
[2023-04-30 07:51] LABS: Magnesium 1.8 mg/dL (1.6-2.3)
[2023-04-30] MEDS: APIXABAN 5 MG TABLET PO (08:43)
[2023-04-30] MEDS: METOPROLOL TARTRATE 5 MG/5 ML INJ IV (08:43)
[2023-04-30] MEDS: METFORMIN HCL 500 MG TABLET PO ×2 (08:43→17:20)
[2023-04-30] MEDS: POTASSIUM CHLORIDE 20 MEQ TAB 40 MEQ PO (08:43)
[2023-04-30] MEDS: DOXYCYCLINE HYCLATE 100 MG TABLET PO (08:43)
[2023-04-30] MEDS: MAGNESIUM SULFATE 2 GM/50 ML PIGGYBACK IV (08:43)
[2023-04-30] MEDS: LACTATED RINGERS 1,000 ML 42 ML IV (15:11)
--- NOTE | 2023-04-30 15:29 | PM.PROC.1 ---
Procedures Date/Time Date of procedure: 04/30/23 Time of procedure: 15:15 General Procedure description: Procedure: Synchronized Electrical Cardioversion Performed By: Dr. Fly Romero Anesthesia: Dr. Suki Kaplan Indication: Atrial Fibrillation with rapid rate Procedure: Patient was placed on continuous cardiac monitoring and continuous pulse oxymetry. Supplemental oxygen was provided via nasal cannula. Electrodes were placed in an anterior/posterior fashion. Rhythm of atrial fibrillation was confirmed with rapid heart rate. After appropriate level of sedation was achieved, synchronized cardioversion was performed at 120J with successful conversion to sinus rhythm. Patient tolerated the procedure well. Complications: none
--- NOTE | 2023-04-30 15:37 | PM.PN.1 ---
Subjective Subjective Date Patient Seen: 04/30/23 Time Patient Seen: 08:00 Interval history: Overnight patient developed atrial fibrillation with rapid heart rate. He did not have any symptoms of chest pain, shortness of breath, dizziness, palpitations. Overnight he did received IV diltiazem with minimal response of his heart rate. He was started on oral metoprolol. His heart rate was initially in the 150s. With metoprolol his heart rate did improve to 120s-130s. He stated he had taken his apixaban doses with missing a dose. I discussed with cardiology who stated he would be an appropriate candidate for synchronized electrical cardioversion. This was discussed with him and he wished to proceed, risks/benefits were discussed and informed consent was signed. Please see separate procedure note. Exam Vital Signs (past 8 hours): - 04/30/23 08:00 04/30/23 12:00 04/30/23 15:09 Temperature 96.7 F L 97.3 F L Pulse Rate 76 120 H 136 H Respiratory Rate 19 20 18 Blood Pressure 99/61 104/64 119/82 Pulse Oximetry 95 97 98 Oxygen Delivery Method Room Air Oxygen Flow Rate 0 0 Oxygen Delivery Method Room Air Oxygen Flow Rate 0 Narrative Exam Narrative: GEN: no acute distress CV: irregular, tachycardic PULM: clear bilaterally ABD: soft, nontender, nondistended EXT: warm and well perfused, petechial rash on inner thigh of leg, no pain or warmth, compression socks in place NEURO: awake, alert, no focal deficits Objective Labs 04/30/23 05:39 04/30/23 05:39 Labs: Laboratory Results - last 24 hr 04/29/23 04/30/23 04/30/23 14:36 05:39 05:53 WBC 7.3 RBC 4.86 Hgb 15.0 Hct 44.1 MCV 90.8 MCH 30.8 MCHC 33.9 RDW 14.3 Plt Count 238 Neut % (Auto) 63.8 Lymph % (Auto) 24.4 L [place] % (Auto) 8.4 Eos % (Auto) 2.3 Baso % (Auto) 1.1 Neut # (Auto) 4600 Lymph # (Auto) 1800 [place] # (Auto) 600 Eos # (Auto) 200 Baso # (Auto) 100 Sodium 135 L Potassium 3.5 Chloride 103 Carbon Dioxide 28 BUN 17 Creatinine 0.98 Estimated GFR > 60 BUN/Creatinine Ratio 17.3 Glucose 132 H Calcium 8.6 Magnesium 1.8 C. difficile Tox (PCR) Positive for c. diff H [facility] Medical History (Updated 04/29/23 @ 14:40 by Juan Luis Cobian DO) VTE (venous thromboembolism) Diabetes Family history of abdominal aortic aneurysm (AAA) (08/06/14) Hypothyroidism Hypertension Hyperlipidemia Gout Adenomatous polyp of colon Social History household members: significant other Smoking Status: Never smoker Assessment & Plan Assessment and plan (1) Cellulitis of left lower leg: Status: Acute Plan: Likely strep considering rapid spread. continue doxycyline Had similar episode several months ago, he was hospitalized in [place] for a few days. DVT US of bilateral LE negative Cellulitis now improved (2) Adenocarcinoma of lung, stage 4: Status: Acute Plan: Getting oncology care at the [facility], on Tabrecta which is shrinking the tumor (3) Hypothyroidism: Status: None Plan: Synthroid 112 mcg daily (4) Hypertension: Status: None Plan: Norvasc 10 mg daily, Lasix 20 mg daily (5) Diabetes: Status: Acute Plan: Metformin, SS (6) VTE (venous thromboembolism): Status: Acute Plan: H/o DVT On Eliquis 5 mg bid for some time now due to hypercoagulablity with cancer Repeat DVT US negative of bilateral legs (7) Edema: Status: Acute Plan: worsened 2-3+ edema of ankles to knee's, likely from piggyback IVF with abx and received fluids in ED start lasix 40mg IV BID LE edema much improved (8) Diarrhea: Status: Acute Plan Dispo: Likely home on 04/30. Assessment & Plan narrative: C diff colitis -c diff positive -diarrhea improving with PO vancomycin -will need 10-14 days of oral vanco after stopping antibiotics for cellulitis Atrial fibrillation with RVR -suspect secondary to infection and electrolyte abnormality -replete electrolytes -is already on apixaban for clot -discussed with cardiology who said patient would be appropriate cardioversion candidate -planned for synchronized cardioversion -continue metoprolol
--- NOTE | 2023-04-30 15:55 | SUR.PREOP ---
Addendum entered by Delia Treadwell R.N. 04/30/23 16:04: Sinus Rhythm in the 70's noted immediately after cardioversion. Airway and vital signs monitored following procedure. Anesthesia at bedside until patient awakened. Anesthesia Handoff to COURT ORDERLY's in Block Room at 1536. Vital signs remain stable throughout post procedure time in Block Room. Patient alert/awake and Oriented x4. Denies pain. Patient transferred to unit via stretcher accompanied by COURT ORDERLY and vital signs monitored throughout transfer. Original Note: Cardioversion Cardioversion performed in Block Room of Surgery admission area. Anesthesia: Dr. Kaplan. Hospitalist: Dr. Rea. Patient vital signs monitored before, during and after cardioversion. O2 administered via Simple mask at 10L. Time Out performed and consent confirmed at 1518. Anesthesia administered by Dr. Kaplan. Condioversion initiated at 15:23 at 120J per Hospitalist instruction. Sinus Rhyt
[2023-05-02 14:38] LABS: C difficie Toxins A and B, EIA Negative (Negative)
--- NOTE | 2023-05-02 20:10 | PM.DS.1 ---
History of Present Illness History of Present Illness Date Patient Seen: 04/27/23 Chief complaint: Left leg issues, very painful, Fever 101F chills Narrative: Per admitting physician: 78 y/o presented to ED with swollen, tender and erythematous Lt lower leg. It started a day earlier as a small area of redness on the top of the foot and quickly spread up. Given Vancomycin and Rocephin in ED. He had some chills and low grade fever at home. Vitals stable in the ED. Discharge Providers Provider Date of admission: 04/27/23 00:18 Discharge Date: 04/30/23 Primary care physician: Rehana Conteh MD Discharge provider: Fly Romero MD Summary Hospital Course Discharge Diagnosis: 1. Acute cellulitis, left leg 2. C. diff colitis 3. Atrial fibrillation with rapid rate 4. Metastatic lung cancer 5. History of VTE 6. Type 2 Diabetes 7. Hypothyroidism Hospital Course: [place] was initially admitted with cellulitis. He was on broad spectrum antibiotics and began improving. He then developed diarrhea and testing was positive for c diff. At this point antibiotics were narrowed to doxycycline. Lavelle gil was started on oral vancomycin. Both his cellulitis and his diarrhea greatly improved. He did develop low magnesium and low potassium likely secondary to this. In this setting he developed afib with a rapid rate. He has been cardioverted previously. He confirmed he had consistently taken his anticoagulation prior to presentation. Spoke with cardiology who confirmed he was an appropriate candidate for cardioversion. Synchronized electrical cardioversion was performed (see procedure note) and he converted to sinus rhythm. He felt well after and was able to be discharged. He will complete a few more days of antibiotics for cellulitis. After this will need 10 more days of vancomycin PO for c diff. He was prescribed metoprolol with the goal of lessening the likelihood he would convert back to atrial fibrillation. 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 Exam Vital Signs (past 8 hours): Oxygen Delivery Method Room Air Oxygen Flow Rate 0 Narrative Exam Narrative: GEN: no acute distress CV: regular, no murmurs PULM: clear bilaterally ABD: soft, nontender, nondistended EXT: warm and well perfused, petechial rash on inner thigh of leg, no pain or warmth, compression socks in place NEURO: awake, alert, no focal deficits Objective Labs 04/30/23 05:39 04/30/23 05:39 Labs: Laboratory Results - last 24 hr 04/29/23 14:36 C. 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 He developed C. diff while on antibiotics. He also developed afib with rapid rate which resolved after electrical cardioversion. He is discharged on doxycycline for his cellulitis. He is discharged on oral vancomycin for his c diff. He is prescribed metoprolol to reduce the chance of converting back to atrial fibrillation. Discharge orders & Medications Prescriptions: New vancomycin 125 mg Capsule 125 mg PO Q6H Qty: 56 0RF doxycycline hyclate 100 mg tablet 100 mg PO BID Qty: 6 0RF metoprolol succinate 50 mg tablet extended release 24 hr 50 mg PO DAILY Qty: 30 0RF Continued levothyroxine [Synthroid] 112 MCG tablet 112 mcg PO QAM Qty: 0 furosemide [Lasix] 20 mg tablet 20 mg PO DAILY Qty: 20 0RF amlodipine 5 mg tablet 10 mg PO DAILY Eliquis 5 mg tablet 5 mg PO BID metformin 500 mg tablet 500 mg PO DAILY colchicine 0.6 mg tablet 0.6 mg PO PRN PRN (Reason: Gout) Rx Instructions: for gout attacks Tabrecta 200 mg tablet 400 mg PO BID Follow up/Referrals: Rehana Conteh MD [Primary Care Provider] - Diet/Activity/Treatments Diet: Carb-consistent/Diabetic Visit Report/Discharge Packet Instructions: DI for Cellulitis -- Adult, DI for Cardioversion, DI for Clostridioides difficile Infection Stand Alone Forms: Patient Portal/API, Stroke Signs & Symptoms Discharge Data Primary Care Provider: Rehana Conteh
== END 2023-04-30 17:29 | disposition home or self-care (01) | DRG 603 ==
LOC: ED 04-27 00:16 → AC 04-27 00:19
PROVIDERS: Internal Medicine; Student in an Organized Health Care Education/Training Program; Admitting Provider Internal Medicine; Emergency Provider Emergency Medicine; PCP Internal Medicine; Referring Provider Emergency Medicine; Visit Provider Internal Medicine
PROC: 5A2204Z Restoration of Cardiac Rhythm, Single (ICD-10-PCS; principal; 2023-04-30 16:00)
DX: L03.116 Cellulitis of left lower limb (principal); C34.90 Malignant neoplasm of unspecified part of unspecified bronchus or lung; A04.72 Enterocolitis due to Clostridium difficile, not specified as recurrent; E03.9 Hypothyroidism, unspecified; I10 Essential (primary) hypertension; E11.9 Type 2 diabetes mellitus without complications; R60.0 Localized edema; I48.91 Unspecified atrial fibrillation; Z86.718 Personal history of other venous thrombosis and embolism; Z79.01 Long term (current) use of anticoagulants; Z79.84 Long term (current) use of oral hypoglycemic drugs
CPT/HCPCS: 36415; 80048; 80053; 80202; 82962; 83605; 83690; 83735; 84145; 85025; 87040; 87324; 87493; 87797; 93005; 93970; 96365; 96367; 96375; 99284; J0690; J0696; J1940; J2270; J2704; J3475

== ENCOUNTER 2024-03-01 17:03 | Emergency (ER) | payer MEDICARE, OTHER, SELFPAY ==
[2023-04-27 01:35] VITALS: BMI 37.3
[2024-03-01] VITALS (51 sets, daily range): BP systolic 95–140; BP diastolic 55–86; PULSE 67–126; RESP 13–36; TEMP 36.8; O2SAT 86–100; BMI 35.9
--- NOTE | 2024-03-01 17:20 | DI.RAD.S_ITS ---
PROCEDURE: XR CHEST 1V INDICATIONS: chest pain TECHNIQUE: One view of the chest was acquired. COMPARISON: [facility], CR, XR CHEST 1V, 10/06/2020, 2:01. [facility], CR, XR CHEST 1V, 08/20/2020, 12:19. FINDINGS: Surgical changes and devices: None. Lungs and pleura: Lungs are clear. No pleural effusions or pneumothorax. Mediastinum: Mediastinal contours appear normal. Heart size is normal. Mild aortic atherosclerotic calcifications. Bones and chest wall: No suspicious bony lesions. Overlying soft tissues appear unremarkable. IMPRESSION: No acute cardiopulmonary abnormality is seen. Approved by: Mitchel Bridges M.D. on 03/01/2024 at 18:34
--- NOTE | 2024-03-01 17:24 | EKG_ITS ---
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
[2024-03-01 17:53] LABS: Add Manual Diff / Slide Review NO; Basophils Absolute Auto 100 /uL (0-100); Basophils Percent Auto 0.9 % (0-2); Eosinophils Absolute Auto 100 /uL (0-450); Eosinophils Percent Auto 1.4 % (2-4); Hemoglobin 15.1 g/dL (13.5-17.5); Lymphocytes Absolute Auto 1200 /uL (1100-4500); Lymphocytes Percent Auto 13.8 % (25-40); Mean Corpuscular HGB Conc 33.6 % (30-36); Mean Corpuscular Hemoglobin 32.9 PG (26-34); Monocytes Absolute Auto 700 /uL (0-900); Monocytes Percent Auto 8.3 % (3-14); Neutrophils Absolute Auto 6600 /uL (1500-7000); Neutrophils Percent Auto 75.6 % (50-75); Platelet Count 284 X10^3/uL (150-400); Red Blood Cell Count 4.59 X10^6/uL (4.5-5.9); Red Cell Distribution Width 15.9 % (11.6-14.8); White Blood Cell Count 8.7 X10^3/uL (4.5-11.0)
[2024-03-01 17:59] LABS: INR 1.2 (0.9-1.3); Prothrombin Time 13.7 SECONDS (9.4-12.5)
--- NOTE | 2024-03-01 17:59 | PC.NURSE ---
Recent DC today from [place]. Reports that he was admitted for multiple days for cellulitis. Has a h/o Afib and reports converting into afib on the ride home to [place]. Pt uses Dr Bermudez and called Dr Bermudez on the way home who suggested coming to ED for cardioversion as Cardizem does not work for him. States he took his beta leroy today prior to DC. HR at this time 108-114. Denies CP/SOB/N/V. Feels mild fluttering in chest and can just sense he is in Afib. Pt is on eliquis and has not missed a dose. requesting cardioversion.
[2024-03-01 18:01] LABS: PTT Partial Thromboplastin Tim 33 SECONDS (25.1-36.5)
[2024-03-01 18:10] LABS: Alanine Aminotransferase 17 IU/L (<50); Albumin 2.7 g/dL (3.5-5.0); Albumin Globulin Ratio 0.9 (1.0-2.8); Alkaline Phosphatase 114 U/L (38-126); Aspartate Aminotransferase 18 IU/L (17-59); BUN Creatinine Ratio 19.8 (6-22); Bilirubin Total 0.5 mg/dL (0.2-1.3); Blood Urea Nitrogen 17 mg/dL (9-20); Calcium 8.4 mg/dL (8.4-10.2); Carbon Dioxide 27 mmol/L (22-32); Chloride 106 mmol/L (98-107); Creatine Kinase 21 U/L (55-170); Estimated Glomerular Filt Rate > 60 mL/min (>60); Glucose 130 mg/dL (80-110); HEMOLYSIS < 15 (0-50); Lipase 34 U/L (23-300); Magnesium 2.2 mg/dL (1.6-2.3); Potassium 3.9 mmol/L (3.4-5.1); Sodium 135 mmol/L (137-145); Total Protein 5.7 g/dL (6.3-8.2)
[2024-03-01 18:22] LABS: NT-proBNP (BNP-Adult 18+) 2110 pg/mL (<450); Troponin I < 0.012 ng/mL (0.01-0.034)
--- NOTE | 2024-03-01 18:34 | ED_ITS ---
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 Patient states that he is normally in sinus rhythm, however occasionally after illnesses he goes into atrial fibrillation. He was on chronic Eliquis therapy to prevent pulmonary embolism due to his history of adenocarcinoma. Patient states that he was recently discharged from [facility] after being admitted for cellulitis requiring IV antibiotics. He states that as he was leaving the hospital he felt himself go into atrial fibrillation. He called his cardiology office who recommended taking 50 mg of metoprolol and coming to the emergency department. Patient states that his initial heart rate was in the 150s, in the emergency department his rate is about 110-120. He reports compliance with his Eliquis and has not missed doses. Related Data Home Medications Medication Instructions Recorded Confirmed levothyroxine 112 mcg tablet 112 mcg PO QAM ##0 09/07/17 04/27/23 (Synthroid) amlodipine 5 mg tablet 10 mg PO DAILY 04/27/23 04/27/23 apixaban 5 mg tablet (Eliquis) 5 mg PO BID 04/27/23 04/27/23 capmatinib 200 mg tablet (Tabrecta) 400 mg PO BID 04/27/23 04/27/23 colchicine 0.6 mg tablet 0.6 mg PO PRN PRN Gout 04/27/23 04/27/23 metformin 500 mg tablet 500 mg PO DAILY 04/27/23 04/27/23 Previous Rx's Medication Instructions Recorded furosemide 20 mg tablet (Lasix) 20 mg PO DAILY #20 tabs 12/09/22 doxycycline hyclate 100 mg tablet 100 mg PO BID #6 tabs 04/30/23 metoprolol succinate 50 mg 50 mg PO DAILY #30 tabs 04/30/23 tablet,extended release 24 hr vancomycin 125 mg capsule 125 mg PO Q6H #56 caps 04/30/23 amiodarone 200 mg tablet 200 mg PO .asdir #60 tabs 03/01/24 metoprolol succinate 25 mg 25 mg PO DAILY #30 tabs 03/01/24 tablet,extended release 24 hr Allergies Allergy/AdvReac Type Severity Reaction Status Date / Time Quinolones AdvReac Rash Verified 12/09/22 08:18 Patient History Medical History (Updated 03/01/24 @ 20:53 by Sharee Russ MD) VTE (venous thromboembolism) Diabetes Family history of abdominal aortic aneurysm (AAA) (08/06/14) Hypothyroidism Hypertension Hyperlipidemia Gout Adenomatous polyp of colon Social History household members: significant other Smoking Status: Never smoker Smoking Status: Never smoker alcohol intake frequency: 0-2 drinks per day Substance Use Type: does not use Exam Initial Vital Signs Initial Vital Signs: Vital Signs Temperature 98.3 F 03/01/24 17:06 Pulse Rate 109 H 03/01/24 17:06 Respiratory Rate 22 03/01/24 17:06 Blood Pressure 99/69 03/01/24 17:06 Pulse Oximetry 97 03/01/24 17:06 Oxygen Delivery Method Room Air 03/01/24 17:06 Const: Awake, alert, appears chronically unwell Cardiac: Tachycardia, irregularly irregular RESP: unlabored, clear bilaterally, no wheezing MSK: 2+ nonpitting edema all extremities, full range of motion, pulses equal Skin: Warm, Dry, intact, no rashes Neuro: AO x3, CN II-XII grossly intact, moves all extremities Procedures Cardioversion Indication: Atrial fibrillation with rapid ventricular response Stability: Stable Number of attempts (shocks): 4 Joules used: 150 and 200 Cardiac rhythm post-cardioversion: Initial attempt unsuccessful with persistent a fib with RVR Additional Comments: 4th attempt after amiodarone successful Procedural Sedation Consent signed: Yes Time out performed: Yes Indication: cardioversion ASA Class: III Mallampati Airway Classification: Class III Time of Last PO Intake: 08:00 Preparation: dials inspector applied, pulse oximeter, capnometry used, supplemental O2 applied, suction/airway equipment at bedside and IV secured IV Propofol dose (mg): 70 Intraservice time/total sedation time (min): 20 ED Sedation Level: Moderate (Concious) Patient Tolerated Procedure: Well and No complications Complications: none Course Orders Ordered: ED Orders 03/01/24 17:20 XR chest 1V Stat EKG-12 Lead Stat 03/01/24 17:41 Complete Blood Count AUTO DIFF Stat Comprehensive Metabolic Panel Stat Lipase Stat Magnesium Stat NT-proBNP (BNP-Adult 18+) Stat PTT Partial Thromboplastin Jerzy Stat Prothrombin Time INR Stat TSH [Thyroid Stimulating Hormone] Stat Troponin & CK Cardiac Panel Stat 03/01/24 20:20 EKG-12 Lead Stat Discontinued Medications Amiodarone HCl (Amiodarone 200 Mg Tablet) 400 mg PO NOW ONE Stop: 03/01/24 20:42 Last Admin: 03/01/24 20:50 Dose: 400 mg Documented By: Amiodarone HCl/Dextrose (Nexterone) 150 mg in 100 mls @ 600 mls/hr IV NOW ONE; Protocol Stop: 03/01/24 19:36 Last Infusion: 03/01/24 19:55 Dose: Infused Documented By: Admin: 03/01/24 19:41 Dose: 600 mls/hr Documented By: MANSOOR Propofol (Propofol 200 Mg/20 Ml Vial) 200 mg IV NOW ONE Stop: 03/01/24 18:11 Last Admin: 03/01/24 18:53 Dose: 200 mg Documented By: JOEY Vital Signs Vital signs: Vital Signs - 8 hr 03/01/24 18:05 03/01/24 18:10 03/01/24 18:15 Pulse Rate 116 H 118 H 113 H Respiratory Rate 15 20 23 Blood Pressure Pulse Oximetry 96 96 94 Oxygen Delivery Method Oxygen Flow Rate 03/01/24 18:20 03/01/24 18:25 03/01/24 18:30 Pulse Rate 118 H 116 H 119 H Respiratory Rate 18 36 H 22 Blood Pressure Pulse Oximetry 97 Oxygen Delivery Method Oxygen Flow Rate 03/01/24 18:31 03/01/24 18:35 03/01/24 18:40 Pulse Rate 126 H 120 H Respiratory Rate 33 H 27 H Blood Pressure 140/75 Pulse Oximetry 95 97 Oxygen Delivery Method Oxygen Flow Rate 03/01/24 18:45 03/01/24 18:50 03/01/24 18:55 Pulse Rate 122 H 116 H 117 H Respiratory Rate 13 22 28 H Blood Pressure Pulse Oximetry 97 98 95 Oxygen Delivery Method Nasal Cannula Oxygen Flow Rate 6 03/01/24 18:55 03/01/24 18:57 03/01/24 18:57 Pulse Rate 120 H Respiratory Rate 24 Blood Pressure 96/56 L 118/56 L Pulse Oximetry 98 Oxygen Delivery Method Nasal Cannula Oxygen Flow Rate 4 03/01/24 19:00 03/01/24 19:00 03/01/24 19:05 Pulse Rate 115 H 117 H Respiratory Rate 18 16 Blood Pressure 98/60 Pulse Oximetry 96 96 Oxygen Delivery Method Nasal Cannula Nasal Cannula Oxygen Flow Rate 4 4 03/01/24 19:05 03/01/24 19:10 03/01/24 19:10 Pulse Rate 118 H Respiratory Rate 18 Blood Pressure 95/67 100/56 L Pulse Oximetry 99 Oxygen Delivery Method Room Air Oxygen Flow Rate 03/01/24 19:15 03/01/24 19:15 03/01/24 19:20 Pulse Rate 121 H Respiratory Rate 24 Blood Pressure 110/56 L 113/58 L Pulse Oximetry 98 Oxygen Delivery Method Room Air Oxygen Flow Rate 03/01/24 19:20 03/01/24 19:25 03/01/24 19:26 Pulse Rate 121 H 119 H 121 H Respiratory Rate 20 20 23 Blood Pressure 105/72 Pulse Oximetry 97 97 97 Oxygen Delivery Method Room Air Room Air Oxygen Flow Rate 03/01/24 19:26 03/01/24 19:30 03/01/24 19:30 Pulse Rate 121 H Respiratory Rate 25 H Blood Pressure 105/72 106/62 Pulse Oximetry 98 Oxygen Delivery Method Oxygen Flow Rate 03/01/24 19:35 03/01/24 19:35 03/01/24 19:40 Pulse Rate 121 H 121 H Respiratory Rate 25 H 16 Blood Pressure 113/62 Pulse Oximetry 97 99 Oxygen Delivery Method Oxygen Flow Rate 03/01/24 19:40 03/01/24 19:44 03/01/24 19:44 Pulse Rate 121 H Respiratory Rate 21 Blood Pressure 106/61 96/69 Pulse Oximetry 97 Oxygen Delivery Method Oxygen Flow Rate 03/01/24 19:45 03/01/24 19:45 03/01/24 19:48 Pulse Rate 121 H 113 H Respiratory Rate 21 15 Blood Pressure 102/68 Pulse Oximetry 98 97 Oxygen Delivery Method Oxygen Flow Rate 03/01/24 19:48 03/01/24 19:50 03/01/24 19:51 Pulse Rate 116 H 110 H Respiratory Rate 14 15 Blood Pressure 113/64 Pulse Oximetry 97 97 Oxygen Delivery Method Oxygen Flow Rate 03/01/24 19:51 03/01/24 19:54 03/01/24 19:54 Pulse Rate 109 H Respiratory Rate 15 Blood Pressure 104/68 106/58 L Pulse Oximetry 97 Oxygen Delivery Method Oxygen Flow Rate 03/01/24 19:55 03/01/24 19:57 03/01/24 19:57 Pulse Rate 110 H 109 H Respiratory Rate 19 14 Blood Pressure 97/63 Pulse Oximetry 97 97 Oxygen Delivery Method Oxygen Flow Rate 03/01/24 20:00 03/01/24 20:00 03/01/24 20:03 Pulse Rate 105 H 107 H Respiratory Rate 15 16 Blood Pressure 107/65 Pulse Oximetry 97 96 Oxygen Delivery Method Oxygen Flow Rate 03/01/24 20:03 03/01/24 20:05 03/01/24 20:06 Pulse Rate 110 H 113 H Respiratory Rate 17 16 Blood Pressure 99/66 Pulse Oximetry 97 96 Oxygen Delivery Method Oxygen Flow Rate 03/01/24 20:06 03/01/24 20:09 03/01/24 20:09 Pulse Rate 111 H Respiratory Rate 15 Blood Pressure 103/66 108/70 Pulse Oximetry 97 Oxygen Delivery Method Oxygen Flow Rate 03/01/24 20:10 03/01/24 20:11 03/01/24 20:11 Pulse Rate 114 H 113 H Respiratory Rate 19 19 Blood Pressure 102/61 Pulse Oximetry 98 99 Oxygen Delivery Method Oxygen Flow Rate 03/01/24 20:15 03/01/24 20:16 03/01/24 20:16 Pulse Rate 117 H 116 H Respiratory Rate 33 H 19 Blood Pressure 123/86 Pulse Oximetry 90 L 86 L Oxygen Delivery Method Oxygen Flow Rate 03/01/24 20:19 03/01/24 20:19 03/01/24 20:20 Pulse Rate 68 67 Respiratory Rate 22 22 Blood Pressure 104/59 L Pulse Oximetry 98 99 Oxygen Delivery Method Oxygen Flow Rate 03/01/24 20:20 03/01/24 20:25 03/01/24 20:25 Pulse Rate 69 Respiratory Rate 23 Blood Pressure 112/59 L 110/64 Pulse Oximetry 96 Oxygen Delivery Method Oxygen Flow Rate 03/01/24 20:30 03/01/24 20:30 03/01/24 20:35 Pulse Rate 70 67 Respiratory Rate 31 H 18 Blood Pressure 113/67 Pulse Oximetry 99 99 Oxygen Delivery Method Oxygen Flow Rate 03/01/24 20:35 03/01/24 20:40 03/01/24 20:40 Pulse Rate 67 Respiratory Rate 16 Blood Pressure 110/64 96/55 L Pulse Oximetry 100 Oxygen Delivery Method Oxygen Flow Rate 03/01/24 20:45 03/01/24 20:45 Pulse Rate 67 Respiratory Rate 19 Blood Pressure 106/56 L Pulse Oximetry 98 Oxygen Delivery Method Oxygen Flow Rate MDM - Arrhythmia/Palpitations Lab Data 03/01/24 17:41 03/01/24 17:41 Labs: Lab Results 03/01/24 Range/Units 17:41 WBC 8.7 (4.5-11.0) X10^3/uL RBC 4.59 (4.5-5.9) X10^6/uL Hgb 15.1 (13.5-17.5) g/dL Hct 45.0 (41-53) % MCV 98.0 (80-100) fL MCH 32.9 (26-34) PG MCHC 33.6 (30-36) % RDW 15.9 H (11.6-14.8) % Plt Count 284 (150-400) X10^3/uL Neut % (Auto) 75.6 H (50-75) % Lymph % (Auto) 13.8 L (25-40) % Morrill % (Auto) 8.3 (3-14) % Eos % (Auto) 1.4 L (2-4) % Baso % (Auto) 0.9 (0-2) % Neut # (Auto) 6600 (9990-4072) /uL Lymph # (Auto) 1200 (7558-0987) /uL [place]rill # (Auto) 700 (0-900) /uL Eos # (Auto) 100 (0-450) /uL Baso # (Auto) 100 (0-100) /uL PT 13.7 H (9.4-12.5) SECONDS INR 1.2 (0.9-1.3) APTT 33 (25.1-36.5) SECONDS Sodium 135 L (137-145) mmol/L Potassium 3.9 (3.4-5.1) mmol/L Chloride 106 (98-107) mmol/L Carbon Dioxide 27 (22-32) mmol/L BUN 17 (9-20) mg/dL Creatinine 0.86 (0.66-1.25) mg/dL Estimated GFR > 60 (>60) mL/min BUN/Creatinine Ratio 19.8 (6-22) Glucose 130 H (80-110) mg/dL Calcium 8.4 (8.4-10.2) mg/dL Magnesium 2.2 (1.6-2.3) mg/dL Total Bilirubin 0.5 (0.2-1.3) mg/dL AST 18 (17-59) IU/L ALT 17 (<50) IU/L Alkaline Phosphatase 114 (38-126) U/L Total Creatine Kinase 21 L (55-170) U/L Troponin I < 0.012 (0.01-0.034) ng/mL NT-Pro-B Natriuret Pep 2110 H (<450) pg/mL Total Protein 5.7 L (6.3-8.2) g/dL Albumin 2.7 L (3.5-5.0) g/dL Globulin 3.0 (1.7-4.1) g/dL Albumin/Globulin Ratio 0.9 L (1.0-2.8) Lipase 34 (23-300) U/L TSH 5.14 H (0.47-4.68) uIU/mL Imaging Data Chest x-ray: Radiologist's Impresson: PROCEDURE: XR CHEST 1V INDICATIONS: chest pain TECHNIQUE: One view of the chest was acquired. COMPARISON: [facility], , XR CHEST 1V, 10/06/2020, 2:01. [facility], , XR CHEST 1V, 08/20/2020, 12:19. FINDINGS: Surgical changes and devices: None. Lungs and pleura: Lungs are clear. No pleural effusions or pneumothorax. Mediastinum: Mediastinal contours appear normal. Heart size is normal. Mild aortic atherosclerotic calcifications. Bones and chest wall: No suspicious bony lesions. Overlying soft tissues appear unremarkable. IMPRESSION: No acute cardiopulmonary abnormality is seen. Approved by: Mitchel Bridges M.D. on 03/01/2024 at 18:34 ECG Data Interpretation: Atrial fibrillation with rapid ventricular response at 119 beats per minute. No ST T wave changes, no STEMI EKG 2: Normal sinus rhythm at 69 beats per minute. Occasional PACs present. Normal NH, no ST T wave changes MDM Narrative Medical decision making narrative: Patient here with paroxysmal atrial fibrillation with RVR. Patient states that he is compliant with his Eliquis due to risk of pulmonary embolism, however it was not normally on an antiarrhythmic agent for atrial fibrillation. His last episode of AFib was nearly 1 year ago and his 1st dose of metoprolol in many months was today. Patient consents to cardioversion. Unfortunately patient was not able to be successfully cardioverted after 3 synchronized attempts, 1st attempt at 150 joules, 2 subsequent attempts at 200 joules. Discussed patient's case with Dr. Bermudez, who is the patient's strike off machine operator. He recommends bolusing 150 mg of amiodarone and subsequent cardioversion attempt. After 150 mg of amiodarone the patient was successfully cardioverted at 200 joules synchronized. He remained in normal sinus rhythm and after recovering from sedation he reported feeling improved. Initially plan by Cardiology was to start patient on amiodarone, however after learning that the patient was not normally take an antiarrhythmic such as metoprolol he stated that patient should be on 25 mg of metoprolol daily. If he goes back into atrial fibrillation then he would need amiodarone, but it would be a better idea to protect his lungs by trying metoprolol 1st. Both metoprolol and amiodarone sent to patient's pharmacy. Patient states that he will follow up with his strike off machine operator when he gets back to [place]. He is trying to go back this week. Critical Care Time Critical Care Time Critical Care Time: Yes Total Critical Care Time: 43 Attestation: A fib with rvr requiring multiple cardioversion attempts, discussion with cardiology Discharge Plan Departure Patient Disposition: Home Clinical Impression: Atrial fibrillation with RVR Instructions: DI for Atrial Fibrillation Activity Restrictions/Additional Instructions: We were able to cardiovert you out of atrial fibrillation after amiodarone. You will need to closely monitor your thryoid levels with this medication, however this will help keep you from going back into A fib. You may either follow up with Dr. Bermudez in the cardiology office here, or at your cardiology doctor's office when you go back to [place]. Prescriptions: New amiodarone 200 mg tablet 200 mg PO .asdir Qty: 60 0RF Rx Instructions: 400mg po BID x 1 week THEN 200mg po BID x 1 week THEN 200mg po Daily metoprolol succinate 25 mg tablet extended release 24 hr 25 mg PO DAILY Qty: 30 0RF No Action levothyroxine [Synthroid] 112 MCG tablet 112 mcg PO QAM Qty: 0 furosemide [Lasix] 20 mg tablet 20 mg PO DAILY Qty: 20 0RF amlodipine 5 mg tablet 10 mg PO DAILY Eliquis 5 mg tablet 5 mg PO BID metformin 500 mg tablet 500 mg PO DAILY colchicine 0.6 mg tablet 0.6 mg PO PRN PRN (Reason: Gout) Rx Instructions: for gout attacks Tabrecta 200 mg tablet 400 mg PO BID vancomycin 125 mg Capsule 125 mg PO Q6H Qty: 56 0RF doxycycline hyclate 100 mg tablet 100 mg PO BID Qty: 6 0RF metoprolol succinate 50 mg tablet extended release 24 hr 50 mg PO DAILY Qty: 30 0RF Referrals: Rehana Conteh MD [Primary Care Provider] - Stand Alone Forms: Patient Portal/API
[2024-03-01] MEDS: propofoL 200 MG/20 ML VIAL IV (18:53)
[2024-03-01] MEDS: AMIODARONE 150 MG/100 ML PIGGYBACK 600 MG IV (19:41)
--- NOTE | 2024-03-01 20:20 | EKG_ITS ---
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
[2024-03-01 20:47] LABS: Thyroid Stimulating Hormone 5.14 uIU/mL (0.47-4.68)
[2024-03-01] MEDS: AMIODARONE 200 MG TABLET 400 MG PO (20:50)
== END 2024-03-01 21:00 | disposition home or self-care (01) ==
PROVIDERS: Student in an Organized Health Care Education/Training Program; Emergency Provider Emergency Medicine; PCP Internal Medicine
DX: I48.20 Chronic atrial fibrillation, unspecified (principal); Z79.01 Long term (current) use of anticoagulants; R07.9 Chest pain, unspecified
CPT/HCPCS: 36415; 71045; 80053; 82550; 83690; 83735; 83880; 84443; 84484; 85025; 85610; 85730; 92960; 93005; 96374; 99152; 99285; 99291; J0282; J2704